=== PATIENT | female | born 1970 | race Two or more races ===

== ENCOUNTER 2023-09-25 15:30 | Inpatient (IN) | payer OTHER ==
[~2023-09-25] VITALS: Ht 165.1 cm; Wt 61.3 kg
[2023-09-25] MEDS ORDERED: ONDANSETRON HCL 4 MG/2 ML VIAL IV ONE (15:45)
[2023-09-25] MEDS ORDERED: SODIUM CHLORIDE 0.9% 1,000 ML IV ONE ×2 (15:45→16:45)
[2023-09-25] MEDS ORDERED: MORPHINE SULFATE 4 MG/ML SYR/VIAL IV ONE (16:00)
[2023-09-25 16:34] LABS: Basophils # (auto) 0.1 10 ^3/uL (0-0.2); Basophils % (auto) 0.5 % (0.0-2.0); Eosinophils # (auto) 0 10 ^3/uL (0-0.8); Hematocrit 46.3 % (36.0-46.0); Hemoglobin 15.9 g/dL (12.2-16.2); Lymphocytes # (auto) 1.5 10 ^3/uL (0.4-5.4); Lymphocytes % (auto) 10.6 % (10.0-50.0); Mean Corpuscular Hemoglobin 31.3 pg (28.0-32.0); Mean Corpuscular Hgb Conc. 34.3 g/dL (32.0-36.0); Mean Corpuscular Volume 91.4 fL (80.0-100.0); Monocytes # (auto) 0.6 10 ^3/uL (0-1.3); Monocytes % (auto) 4.3 % (0.0-12.0); Neutrophils % (auto) 84.6 % (37.0-80.0); Nucleated Red Blood Cells % 0.9 %; Red Blood Cells 5.07 10^6/uL (4.0-5.20); Red Cell Distribution Width 12.5 % (11.8-14.3); White Blood Cell 14.2 10^3/uL (4.4-10.8)
[2023-09-25] MEDS ORDERED: SODIUM CHLORIDE 0.9% 1,000 ML IVB ONE (16:45)
[2023-09-25] MEDS ORDERED: InsuLIN REG 1unit/0.01ml Soln (100units/ml) IV ONE (16:45)
[2023-09-25 16:47] LABS: Alanine Aminotransferase 21 U/L (7-40); Albumin 5.1 g/dL (3.2-4.8); Alkaline Phosphatase 116 U/L (46-116); Anion Gap 9 (5-15); Aspartate Aminotransferase 18 U/L (13-40); Bilirubin, Total 0.8 mg/dL (0.2-1.0); Blood Urea Nitrogen 26 mg/dL (9-23); Calcium 10.5 mg/dL (8.5-10.1); Carbon Dioxide 30 mmol/L (20-30); Chloride 95 mmol/L (98-107); Glucose 235 mg/dL (74-106); Potassium 4.1 mmol/L (3.5-5.1); Sodium 134 mmol/L (136-145); Total Protein 7.6 g/dL (5.7-8.2)
[2023-09-25 17:10] VITALS: PULSE 92; RESP 13; O2SAT 97
[2023-09-25] MEDS ORDERED: METOCLOPRAMIDE HCL 5MG/ml INJ 2ml VIAL IV ONE (18:45)
[2023-09-25] MEDS ORDERED: HYDROmorphone HCL 2 MG/ML VL/or syr IV ONE (18:45)
[2023-09-25 19:22] LABS: Urine Bacteria FEW /hpf (None Seen); Urine Blood Negative /uL (Negative); Urine Clarity Clear (Clear); Urine Color Yellow (Yellow); Urine Hyaline Cast FEW /lpf (0 - 2); Urine Protein, UAD Negative (Negative); Urine Specific Gravity 1.013 (1.001-1.035); Urine Urobilinogen Normal (Negative); Urine WBC 11 /hpf (0 - 5); Urine pH 5.5 (5.0-8.0)
[2023-09-25 19:25] VITALS: PULSE 80; RESP 10; O2SAT 100
[2023-09-25] MEDS ORDERED: DOCUSATE SOD 100 MG CAP PO PRN (21:45)
[2023-09-25] MEDS ORDERED: ACETAMINOPHEN 325 MG TAB PO PRN (21:45)
[2023-09-25] MEDS ORDERED: HYDROcodone-ACET 5/325MG TAB PO PRN (21:45)
[2023-09-25] MEDS ORDERED: DEXTROSE (50%) 50ML SYRG IV PRN (21:45)
[2023-09-25] MEDS: FAMOTIDINE (10MG/ML) 2ML VL IV SCH (22:35)
[2023-09-25] MEDS: ONDANSETRON HCL 4 MG/2 ML VIAL IV PRN (22:56)
[2023-09-25] MEDS: MORPHINE SULFATE INJ 2 MG/ml SYRG IV PRN (22:57)
[2023-09-25] MEDS ORDERED: cefTRIAXone 1GM/50ML D5W 50 ML IV ONE (23:00)
[2023-09-26] VITALS (9 sets, daily range): BP systolic 114–160; BP diastolic 66–91; PULSE 65–83; RESP 16–20; TEMP 97.5–98.4; O2SAT 93–100
[2023-09-26] MEDS: ACCU-CHEK COMFORT CURVE STRIP VI SCH ×4 (00:01→17:49)
[2023-09-26] MEDS: ONDANSETRON HCL 4 MG/2 ML VIAL IV PRN ×3 (02:56→17:40)
[2023-09-26] MEDS: MORPHINE SULFATE INJ 2 MG/ml SYRG IV PRN ×4 (03:00→18:38)
[2023-09-26] MEDS: InsuLIN REG 1unit/0.01ml Soln (100units/ml) SC SCH ×4 (06:04→17:49)
[2023-09-26 06:15] LABS: Basophils # (auto) 0 10 ^3/uL (0-0.2); Basophils % (auto) 0.3 % (0.0-2.0); Eosinophils # (auto) 0.1 10 ^3/uL (0-0.8); Eosinophils % (auto) 0.5 % (0.0-7.0); Hematocrit 35.4 % (36.0-46.0); Hemoglobin 12.1 g/dL (12.2-16.2); Lymphocytes # (auto) 2.3 10 ^3/uL (0.4-5.4); Lymphocytes % (auto) 23.9 % (10.0-50.0); Mean Corpuscular Hemoglobin 31.2 pg (28.0-32.0); Mean Corpuscular Hgb Conc. 34.2 g/dL (32.0-36.0); Mean Corpuscular Volume 91.3 fL (80.0-100.0); Monocytes # (auto) 0.6 10 ^3/uL (0-1.3); Monocytes % (auto) 6.2 % (0.0-12.0); Neutrophils # (auto) 6.6 10 ^3/uL (1.6-8.6); Neutrophils % (auto) 69.1 % (37.0-80.0); Nucleated Red Blood Cells % 0.1 %; Red Blood Cells 3.88 10^6/uL (4.0-5.20); Red Cell Distribution Width 12.5 % (11.8-14.3); White Blood Cell 9.6 10^3/uL (4.4-10.8)
[2023-09-26 06:46] LABS: Alanine Aminotransferase 13 U/L (7-40); Albumin 3.9 g/dL (3.2-4.8); Alkaline Phosphatase 80 U/L (46-116); Anion Gap 8 (5-15); Aspartate Aminotransferase 16 U/L (13-40); BUN/Creatinine Ratio 15.1 (10.0-20.0); Bilirubin, Total 0.7 mg/dL (0.2-1.0); Blood Urea Nitrogen 11 mg/dL (9-23); Calcium 9.1 mg/dL (8.5-10.1); Carbon Dioxide 27 mmol/L (20-30); Chloride 104 mmol/L (98-107); Glucose 129 mg/dL (74-106); Potassium 3.4 mmol/L (3.5-5.1); Sodium 139 mmol/L (136-145); Total Protein 5.9 g/dL (5.7-8.2)
[2023-09-26] MEDS: FAMOTIDINE (10MG/ML) 2ML VL IV SCH (09:40)
[2023-09-26] MEDS ORDERED: MORPHINE SULFATE INJ 2 MG/ml SYRG IV ONE (10:30)
[2023-09-26] MEDS ORDERED: FAMO-12 PO (11:04)
[2023-09-26] MEDS ORDERED: ZOFR4T PO (11:04)
[2023-09-26] MEDS: POTASSIUM CHL 20MEQ/100ML 100 ML IV SCH ×2 (13:38→20:06)
[2023-09-26] MEDS ORDERED: MORP15TA PO (15:40)
[2023-09-26] MEDS ORDERED: PANTOPRAZOLE 40 MG/10 ML VIAL INJ IV ONE (16:00)
[2023-09-26] MEDS: PANTOPRAZOLE 40 MG/10 ML VIAL INJ IV SCH (16:28)
[2023-09-26] MEDS ORDERED: PATIENTS OWN MEDICATION (Morphine Sulfate 1 TAB) PO PRN (19:00)
[2023-09-26] MEDS ORDERED: CHOL20007 OR (19:06)
[2023-09-26] MEDS ORDERED: GABA-339 PO ×2 (19:06)
[2023-09-26] MEDS ORDERED: [UNRECOGNIZED DRUG - OTHER] PO (19:06)
[2023-09-26] MEDS ORDERED: DICL1GEL73 TD (19:06)
[2023-09-26] MEDS ORDERED: PRAM0.373 PO (19:06)
[2023-09-26] MEDS ORDERED: SIMV40TA18 PO (19:06)
[2023-09-26] MEDS ORDERED: MORPHINE SULFATE PO PRN (19:45)
[2023-09-26] MEDS ORDERED: POTASSIUM CHL 20MEQ/100ML 100 ML IV ONE (19:59)
[2023-09-26] MEDS ORDERED: TRAZ-227 PO (20:22)
[2023-09-26] MEDS ORDERED: cefTRIAXone 1GM/50ML D5W 50 ML IV SCH (21:00)
[2023-09-26] MEDS: CYCLOBENZAPRINE HCL 10 MG TAB PO PRN (21:14)
[2023-09-26] MEDS ORDERED: traZODone HCL 50 MG TAB PO SCH (22:00)
[2023-09-26] MEDS ORDERED: GABAPENTIN 1600 MG PO SCH (22:00)
[2023-09-26] MEDS ORDERED: PRAMIPEXOLE DIHYDROCHLORIDE 0.125 MG PO SCH (22:00)
[2023-09-26] MEDS ORDERED: GABAPENTIN 400 MG CAP PO SCH (22:00)
[2023-09-26] MEDS: MORPHINE SULF 15mg ER tab PO PRN (22:53)
[2023-09-27] MEDS: ACCU-CHEK COMFORT CURVE STRIP VI SCH ×2 (00:15→05:28)
[2023-09-27] MEDS: InsuLIN REG 1unit/0.01ml Soln (100units/ml) SC SCH ×2 (00:15→05:28)
[2023-09-27] MEDS: PANTOPRAZOLE 40 MG/10 ML VIAL INJ IV SCH (03:18)
[2023-09-27] MEDS: MORPHINE SULFATE INJ 2 MG/ml SYRG IV PRN (03:19)
[2023-09-27 05:00] VITALS: BP 143/76; PULSE 62; RESP 18; TEMP 98.3; O2SAT 97
[2023-09-27] MEDS: CYCLOBENZAPRINE HCL 10 MG TAB PO PRN (05:31)
[2023-09-27] MEDS: MORPHINE SULF 15mg ER tab PO PRN (06:56)
[2023-09-27 07:08] LABS: Basophils # (auto) 0 10 ^3/uL (0-0.2); Basophils % (auto) 0.4 % (0.0-2.0); Eosinophils # (auto) 0.1 10 ^3/uL (0-0.8); Hematocrit 34.8 % (36.0-46.0); Hemoglobin 12.1 g/dL (12.2-16.2); Lymphocytes # (auto) 2.6 10 ^3/uL (0.4-5.4); Lymphocytes % (auto) 39.1 % (10.0-50.0); Mean Corpuscular Hgb Conc. 34.7 g/dL (32.0-36.0); Mean Corpuscular Volume 92.3 fL (80.0-100.0); Monocytes # (auto) 0.4 10 ^3/uL (0-1.3); Monocytes % (auto) 6.3 % (0.0-12.0); Neutrophils # (auto) 3.5 10 ^3/uL (1.6-8.6); Neutrophils % (auto) 52.2 % (37.0-80.0); Nucleated Red Blood Cells % 0.1 %; Red Blood Cells 3.78 10^6/uL (4.0-5.20); Red Cell Distribution Width 12.6 % (11.8-14.3); White Blood Cell 6.6 10^3/uL (4.4-10.8)
[2023-09-27 07:50] LABS: Chloride 108 mmol/L (98-107); Potassium 3.8 mmol/L (3.5-5.1); Sodium 140 mmol/L (136-145)
[2023-09-27 07:51] LABS: Anion Gap 7 (5-15); Calcium 9.1 mg/dL (8.7-10.4); Carbon Dioxide 25 mmol/L (20-30)
[2023-09-27 07:56] LABS: BUN/Creatinine Ratio 6.4 (10.0-20.0); Blood Urea Nitrogen 5 mg/dL (9-23); Glucose 93 mg/dL (74-106); Lipase 39 U/L (12-53)
[2023-09-27 08:00] VITALS: PULSE 88; RESP 18
[2023-09-27] MEDS ORDERED: PATIENTS OWN MEDICATION (Gabapentin 800 MG) PO SCH (08:00)
[2023-09-27] MEDS ORDERED: GABAPENTIN 400 MG CAP PO SCH (08:00)
[2023-09-27] MEDS ORDERED: ATORVASTATIN 20 MG TAB PO SCH (10:00)
== END 2023-09-27 08:55 | disposition left against medical advice (07) | DRG 48 ==
LOC: ER 15:30 → OVERFLOW 22:59 → WEST WING 23:54
PROVIDERS: ADMIT Nurse Practitioner Family; ATTEND Nurse Practitioner Family
DX: E11.43 Type 2 diabetes mellitus with diabetic autonomic (poly)neuropathy (principal); D72.829 Elevated white blood cell count, unspecified; E11.40 Type 2 diabetes mellitus with diabetic neuropathy, unspecified; E11.10 Type 2 diabetes mellitus with ketoacidosis without coma; K31.84 Gastroparesis; E86.0 Dehydration; I16.0 Hypertensive urgency; N39.0 Urinary tract infection, site not specified; Z53.29 Procedure and treatment not carried out because of patient's decision for other reasons; Z80.0 Family history of malignant neoplasm of digestive organs; Z83.3 Family history of diabetes mellitus
CPT/HCPCS: 36415; 74176; 76705; 80048; 80053; 81001; 82962; 83690; 84484; 85025; 96361; 96365; 96375; C9113; G0378; J0696; J1815; J2405; J3480; J3490

== ENCOUNTER 2025-03-19 07:26 | Inpatient (IN) | payer MEDICARE, MEDICAID ==
[~2025-03-19] VITALS: Ht 165.1 cm; Wt 59.4 kg
[~2025-03-19 07:26] MED LIST: CHOL20007 OR; DICL1GEL73 TD; FAMO-12 PO; GABA-339 PO; MORP15TA PO; PRAM0.373 PO; SIMV40TA18 PO; TRAZ-227 PO; ZOFR4T PO; [UNRECOGNIZED DRUG - OTHER] PO
[2025-03-19 08:00] VITALS: PULSE 53; RESP 18; O2SAT 99
--- NOTE | 2025-03-19 08:15 | ED.PDOC ---
GI ASSESSMENT HPI Comments 54 year old female presents to the ED with a chief complaint of abdominal pain onset 2 days. Per daughter, patient has a PMHx of DM type I, Gastritis. Patient has been experiencing poor appetite for the past 2 days as well as diffused abdominal pain, nausea, vomiting, diarrhea, generalized weakness. Patient has not seen PCP, recently moved, has not been assigned new PCP. Denies chest pain, dizziness, headache, fevers, chills. No other symptoms or modifying factors present at this time. Chief Complaint: Nausea/Vomiting Time Seen by MD: 08:03 Primary Care Provider: NONE Reviewed Notes: Medications, Allergies Allergies: Coded Allergies: No Known Drug Allergy (Verified Allergy, Unknown, 09/25/23) Home Meds Reported Medications Trazodone Hcl (Trazodone Hcl) 50 Mg Tab, 50 MG PO HS, MG 09/26/23 Diclofenac Sodium (Topical) (Diclofenac Sodium) 1 % Gel, 1 % TD, GEL 09/26/23 Dextrose (Diabetic Use) (Trueplus Glucose Gel) 15 Gm/32 Ml Gel, 15 GM PO, GEL 09/26/23 Gabapentin (Gabapentin) 600 Mg Tab, 1600 MG PO HS for 30 Days, MG 09/26/23 Gabapentin (Gabapentin) 600 Mg Tab, 800 MG PO DAILY@BREAKFAST for 30 Days, MG 09/26/23 Pramipexole Dihydrochloride (Pramipexole Dihydrochlori) 0.375 Mg Tab, 0.125 MG PO HS, TAB 09/26/23 Cholecalciferol (VITAMIN D3) 2,000 Unit Tab, 2000 UNIT OR, TAB 09/26/23 Simvastatin (Simvastatin) 40 Mg Tab, 40 MG PO DAILY for 30 Days 09/26/23 Morphine Sulfate (Morphine Sulfate) 15 Mg Tab, 3 TAB PO TIDPRN PRN for PAIN SCALE 7 THRU 10, #90 TAB 09/26/23 Ondansetron Odt 4MG Tab (ZOFRAN PO) 4 Mg Tb, 4 MG PO Q6HR, TAB ODT TAB-DISSOLVE IN MOUTH, THEN SWALLOW 09/26/23 Famotidine (Famotidine) 20 Mg Tab, 20 MG PO BID for 30 Days, MG 09/26/23 Information Source: Patient, Relative (Child) Mode of Arrival: Ambulatory Timing: Days Duration: Since onset Prehospital treatment: None Quality: Sharp Severity: Moderate Recent: None Recent Hx of: None Pain Location: Diffuse Modifying Factors: Nothing Associated sign and symptoms: Nausea, Vomiting, Diarrhea, Abdominal Pain Past Medical History PAST MEDICAL HISTORY: DM Past Medical History (Other): Gastritis 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: No Pertinent 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 TECHNICIAN History Family History Family History: Reviewed,noncontributory to illness Social History Smoker: Non-Smoker Alcohol: Denies ETOH Use Drugs: Denies Drug Use Lives In: Home Constitutional: reports: weakness; denies: chills, diaphoresis, fatigue, fever, malaise, sweats, others EENTM: denies: blurred vision, double vision, ear bleeding, ear discharge, ear drainage, ear pain, ear ringing, eye pain, eye redness, hearing loss, mouth pain, mouth swelling, nasal discharge, nose bleeding, nose congestion, nose pain, photophobia, tearing, throat pain, throat swelling, voice changes, others Respiratory: denies: cough, hemoptysis, orthopnea, SOB at rest, shortness of breath, SOB with excertion, stridor, wheezing, others Cardiovascular: denies: chest pain, dizzy spells, diaphoresis, Dyspnea on exertion, edema, irregular heart beat, left arm pain, lightheadedness, palpitations, PND, syncope, others Gastrointestinal: reports: abdominal pain, nausea, poor appetite, vomiting; denies: abdomen distended, blood streaked bowels, constipated, diarrhea, dysphagia, difficulty swallowing, hematemesis, melena, poor fluid intake, rectal bleeding, rectal pain, others Genitourinary: denies: abnormal vagina bleeding, burning, dyspareunia, dysuria, flank pain, frequency, hematuria, incontinence, pain, , vagina discharge, urgency, others Neurological: reports: weakness; denies: dizziness, fainting, headache, left sided numbness, left sided weakness, numbness, paresthesia, pre-existing deficit, right sided numbness, right sided weakness, seizure, speech problems, tingling, tremors, others Musculoskeletal: denies: back pain, gout, joint pain, joint swelling, muscle pain, muscle stiffness, neck pain, others Integumetry: denies: bruises, change in color, change in hair/nails, dryness, laceration, lesions, lumps, rash, wounds, others Allergic/Immunocompromised: denies: Difficulty Healing, Frequent Infections, Hives, Itching, others Hematologic/Lymphatic: denies: anemia, blood clots, easy bleeding, easy bruising, swollen glands, others Endocrine: denies: excessive hunger, excessive sweating, excessive thirst, excessive urination, flushing, intolerance to cold, intolerance to heat, unexplained weight gain, unexplained weight loss, others Psychiatric: denies: anxiety, bipolar disorder, depression, hopeless, panic disorder, schizophrenia, sleepless, suicidal, others All Other Systems: Reviewed and Negative Physical Exam General Appearance: No Apparent Distress, Normal HEENT: Normal ENT Inspection, Pharynx Normal, TMs Normal Neck: Full Range of Motion, Non-Tender, Normal, Normal Inspection Respiratory: Chest Non-Tender, Lungs Clear, No Accessory Muscle Use, No Respiratory Distress, Normal Breath Sounds Cardiovascular: No Edema, No JVD, No Murmur, No Gallop, Normal Peripheral Pulses, Regular Rate/Rhythm Breast Exam: Deferred Gastrointestinal: No Organomegaly, Non Tender, No Pulsatile Mass, Normal Bowel Sounds, Soft Genitalia: Deferred Pelvic: Deferred Rectal: Deferred Extremities: No calf tenderness, Normal capillary refill, Normal inspection, Normal range of motion, Non-tender, No pedal edema Musculoskeletal : Apperance: Normal Neurologic: Alert, brakeshoe repairer II-XII nml as Tested, No Motor Deficits, Normal Affect, Normal Mood, No Sensory Deficits Cerebellar Function: Normal Reflexes: Normal Skin: Dry, Normal Color, Warm Lymphatic: No Adenopathy Was a procedure done? Was a procedure done?: No GI differential Dx Differential Diagnosis: Cholecystitis, Constipation, Gastritis/PUD, Gastroenteritis, Pancreatitis, PID, UTI, Urolithiasis, Dehydration, Electrolyte Imbalance, Viral X-Ray, Labs, Meds, VS Vital Signs Date Time Temp Pulse Resp B/P (MAP) Pulse Ox O2 Delivery O2 Flow Rate FiO2 03/19/25 10:33 200/93 03/19/25 10:00 86 12 200/93 (128) 97 03/19/25 09:08 61 15 200/93 03/19/25 08:19 58 24 198/112 03/19/25 08:00 57 03/19/25 08:00 97.2 53 18 203/90 (127) 99 97.2 03/19/25 08:00 53 18 99 Room Air* 0 21 03/19/25 07:47 97.4 60 24 132/93 (106) 96 97.4 Lab Test 03/19/25 09:36 03/19/25 09:29 03/19/25 08:33 03/19/25 08:25 Range/Units Troponin I High Sensitivity 3 L < 3 L </=34 ng/L POC Glucose 230 H 70-106 mg/dl White Blood Count 10.0 4.4-10.8 10^3/uL Red Blood Count 4.79 4.0-5.20 10^6/uL Hemoglobin 14.9 12.2-16.2 g/dL Hematocrit 44.5 36.0-46.0 % Mean Corpuscular Volume 92.9 80.0-100.0 fL Mean Corpuscular Hemoglobin 31.1 28.0-32.0 pg Mean Corpuscular Hemoglobin Concent 33.5 32.0-36.0 g/dL Red Cell Distribution Width 14.4 H 11.8-14.3 % Platelet Count 176 140-450 10^3/uL Mean Platelet Volume 8.5 6.9-10.8 fL Neutrophils (%) (Auto) 83.4 H 37.0-80.0 % Lymphocytes (%) (Auto) 12.3 10.0-50.0 % Monocytes (%) (Auto) 3.4 0.0-12.0 % Eosinophils (%) (Auto) 0.5 0.0-7.0 % Basophils (%) (Auto) 0.4 0.0-2.0 % Neutrophils # (Auto) 8.3 1.6-8.6 10 ^3/uL Lymphocytes # (Auto) 1.2 0.4-5.4 10 ^3/uL Monocytes # (Auto) 0.3 0-1.3 10 ^3/uL Eosinophils # (Auto) 0 0-0.8 10 ^3/uL Basophils # (Auto) 0 0-0.2 10 ^3/uL Nucleated Red Blood Cells 0.0 % Sodium Level 142 136-145 mmol/L Potassium Level 3.5 3.5-5.1 mmol/L Chloride Level 105 98-107 mmol/L Carbon Dioxide Level 29 20-31 mmol/L Anion Gap 8 5-15 Blood Urea Nitrogen 15 9-23 mg/dL Creatinine 0.92 0.550-1.02 mg/dL Glomerular Filtration Rate Calc 73 >90 mL/min BUN/Creatinine Ratio 16.3 10.0-20.0 Serum Glucose 240 H 74-106 mg/dL Lactic Acid Level 1.7 0.4-2.0 mmol/L Calcium Level 10.0 8.7-10.4 mg/dL Total Bilirubin 0.7 0.2-1.0 mg/dL Aspartate Amino Transferase (AST) 20 13-40 U/L Alanine Aminotransferase (ALT) 19 7-40 U/L Alkaline Phosphatase 111 46-116 U/L Total Protein 7.1 5.7-8.2 g/dL Albumin 4.6 3.2-4.8 g/dL Lipase 54 H 12-53 U/L Beta-Hydroxybutyric Acid 0.432 H < 0.4 mmol/L Blood Gas Specimen Type Venous Blood Gas Sample Site Vbg - n/a Blood Gas Patient Temperature 37.0 Arterial Blood Date Drawn [id number] Dean Test N/a Venous Blood pH 7.475 H 7.320-7.430 Venous Blood pCO2 at Patient Temp 37.9 L 38.0-54.0 mmHg Venous Blood pO2 at Patient Temp < 36.5 23.0-48.0 mmHg Venous Blood HCO3 27.3 22.0-29.0 mmol/L Venous Blood Base Excess 3.7 H -2.0-3.0 mmol/L Blood Gas Modality Room air Blood Gas Spontaneous Rate 20 FiO2 % 21.0 Test 03/19/25 07:41 03/19/25 07:37 Range/Units Urine Color Light-yellow Yellow Urine Clarity Clear Clear Urine pH 8.0 5.0-9.0 Urine Specific [place] 1.009 1.001-1.035 Urine Protein Negative Negative Urine Ketones 1+ H Negative Urine Blood Negative Negative /uL Urine Nitrite Negative Negative Urine Bilirubin Negative Negative Urine Urobilinogen Normal Negative mg/dL Urine Leukocyte Esterase Negative Negative /uL Urine RBC 1 0 - 4 /hpf Urine Microscopic WBC < 1 0-5 /HPF Urine Squamous Epithelial Cells Few <5 /hpf Urine Bacteria Few H None Seen /hpf Urine Glucose 3+ H Normal mg/dL POC Glucose 241 H 70-106 mg/dl Current Medications Medications (Trade) Dose Ordered Sig/Shruthi Route Start Time Stop Time Status Last Admin Sodium Chloride 2,000 ml @ 1,000 mls/hr Q2H ONCE IV 03/19/25 08:15 03/19/25 10:14 DC 03/19/25 08:23 Ondansetron HCl (Zofran) 4 mg ONCE ONCE IV 03/19/25 08:15 03/19/25 08:16 DC 03/19/25 08:18 Morphine Sulfate 4 mg ONCE ONCE IV 03/19/25 08:15 03/19/25 08:16 DC 03/19/25 08:19 Pantoprazole Sodium (Protonix) 40 mg ONCE ONCE IV 03/19/25 08:15 03/19/25 08:16 DC 03/19/25 08:18 Haloperidol Lactate (Haldol) 10 mg ONCE ONCE IM 03/19/25 09:15 03/19/25 09:24 DC 03/19/25 09:41 Hydralazine HCl (Apresoline Injection) 20 mg ONCE ONCE IV 03/19/25 10:00 03/19/25 10:14 DC 03/19/25 10:33 [place] [id number] Ph: [phone] DIAGNOSTIC IMAGING Diagnostic Imaging Report : [id number] Signed PATIENT: RUSH REEDCT: [id number] UNIT: [id number] : 1970 LOC: ER ROOM / BED: / AGE / SEX: 54 / F ADM STATUS: REG ER SERVICE 4 ORDERING PHYSICIAN: CASS JACOBS MD PROCEDURE(s): CXRP - CHEST PORTABLE REASON: vomiting ORDER NUMBER(s): [id number], ACCESSION NUMBER(s): [id number] CHEST RADIOGRAPH Indication: vomiting Technique: Single frontal view of the chest was obtained COMPARISON: None FINDINGS: Lines and Tubes: None Lungs: Clear Pleura: No effusion. No pneumothorax. Cardiomediastinal contours: Unremarkable Bones: Unremarkable IMPRESSION: No acute disease. ATED BY: NOÉ IBANEZ MD DICTATED DATE/TIME: 03/19/25902 SIGNED BY: NOÉ IBANEZ MD SIGNED DATE/TIME: 03/19/25902 CC: Time of 1ST Reevaluation: 08:33 Reevaluation 1ST: Unchanged Patient Education/Counseling: Diagnosis, Treatment, Prognosis Family Education/Counseling: Diagnosis, Treatment, Prognosis Additional Information The following tests were ordered, and results were reviewed by me: TROP-x3, CBC, LIPASE, LA W/ REFLEX, UA, XY CHEST, BETA-HYDROXYBUTYRATE, VBG Additional Information was gathered from interviewing the following independent historians: daughter I reviewed and agreed with the following test results read by other providers: XY CHEST I discussed treatment and results with medical personnel and: patient, daughter Comprehensive systems review obtained and negative except for what is stated in the HPI. Departure 1 Departure Time of Disposition: 11:28 (Patient presented with hypertension and symptoms concerning for hypertensive emergency. Patient is receiving iv blood pressure medications requiring intensive monitoring. Data: 1. I ordered and reviewed the result of at least 3 labs including a CBC, BMP, and Urinalysis. 2. I independently interpreted the following tests: CT Brain: Which appears benign. EKG which is Normal Sinus RhythmRisk:This patient has a high risk of morbidity due to further diagnostic testing or treatment and may suffer from an acute cardiac disorder. Workup reveals hypertensive emergency and patient should be admitted for further workup. and possible expert consultation. ) Impression: Primary Impression: Hypertensive emergency Additional Impressions: Generalized weakness Intractable nausea and vomiting Disposition: ADMITTED INPATIENT Admit to: Med Surg Condition: Serious Critical Care Note Critical Care Time?: Yes Critical care comment: Hypertensive emergency Authorized and Performed by: Cass Jacobs MD Total critical care time: Approximately 39 minutes Due to a high probability of clinically significant, life threatening deterioration, the patient required my highest level of preparedness to intervene emergently and I personally spent this critical care time directly and personally managing the patient. This critical care time included obtaining a history; examining the patient; pulse oximetry; ordering and review of studies; arranging urgent treatment with development of a management plan; evaluation of patient's response to treatment; frequent reassessment; and, discussions with other providers. This critical care time was performed to assess and manage the high probability of imminent, life-threatening deterioration that could result in multi-organ failure. It was exclusive of separately billable procedures and treating other patients and teaching time. Please see my other sections and the rest of the note for further information on patient assessment and treatment. Stability Stability form required: No I personally scribed for CASS JACOBS MD ([facility]) on 03/19/25 at 08:15. Electronically submitted by Jeny العراقي ([email or web address]). I personally scribed for CASS JACOBS MD ([facility]) on 03/19/25 at 08:18. Electronically submitted by Jeny العراقي ([email or web address]). I personally scribed for CASS JACOBS MD ([facility]) on 03/19/25 at 09:14. Electronically submitted by Jeny العراقي ([email or web address]). CASS JACOBS MD March 19, 2025 08:15
[2025-03-19] MEDS: ONDANSETRON HCL 4 MG/2 ML VIAL IV ONE (08:18)
[2025-03-19] MEDS: PANTOPRAZOLE 40 MG/10 ML VIAL INJ IV ONE (08:18)
[2025-03-19] MEDS: MORPHINE SULFATE 4 MG/ML SYR/VIAL IV ONE (08:19)
[2025-03-19] MEDS: SODIUM CHLORIDE 0.9% 2,000 ML IV ONE (08:23)
[2025-03-19 08:47] LABS: Basophils # (auto) 0 10 ^3/uL (0-0.2); Basophils % (auto) 0.4 % (0.0-2.0); Eosinophils # (auto) 0 10 ^3/uL (0-0.8); Eosinophils % (auto) 0.5 % (0.0-7.0); Hematocrit 44.5 % (36.0-46.0); Hemoglobin 14.9 g/dL (12.2-16.2); Lymphocytes # (auto) 1.2 10 ^3/uL (0.4-5.4); Lymphocytes % (auto) 12.3 % (10.0-50.0); Mean Corpuscular Hemoglobin 31.1 pg (28.0-32.0); Mean Corpuscular Hgb Conc. 33.5 g/dL (32.0-36.0); Mean Corpuscular Volume 92.9 fL (80.0-100.0); Monocytes # (auto) 0.3 10 ^3/uL (0-1.3); Monocytes % (auto) 3.4 % (0.0-12.0); Neutrophils # (auto) 8.3 10 ^3/uL (1.6-8.6); Neutrophils % (auto) 83.4 % (37.0-80.0); Platelet Count (auto) 176 10^3/uL (140-450); Red Blood Cells 4.79 10^6/uL (4.0-5.20); Red Cell Distribution Width 14.4 % (11.8-14.3)
--- NOTE | 2025-03-19 09:05 | DVH ---
CHEST RADIOGRAPH Indication: vomiting Technique: Single frontal view of the chest was obtained COMPARISON: None FINDINGS: Lines and Tubes: None Lungs: Clear Pleura: No effusion. No pneumothorax. Cardiomediastinal contours: Unremarkable Bones: Unremarkable IMPRESSION: No acute disease.
[2025-03-19 09:06] LABS: Alanine Aminotransferase 19 U/L (7-40); Albumin 4.6 g/dL (3.2-4.8); Alkaline Phosphatase 111 U/L (46-116); Anion Gap 8 (5-15); Aspartate Aminotransferase 20 U/L (13-40); BUN/Creatinine Ratio 16.3 (10.0-20.0); Blood Urea Nitrogen 15 mg/dL (9-23); Carbon Dioxide 29 mmol/L (20-31); Chloride 105 mmol/L (98-107); Potassium 3.5 mmol/L (3.5-5.1); Sodium 142 mmol/L (136-145); Total Protein 7.1 g/dL (5.7-8.2)
[2025-03-19 09:07] LABS: Bilirubin, Total 0.7 mg/dL (0.2-1.0)
[2025-03-19 09:11] LABS: Glucose 240 mg/dL (74-106); Lipase 54 U/L (12-53)
[2025-03-19] MEDS: HALOPERIDOL LACTATE 5 MG/ML INJ VIAL ONE (09:41)
[2025-03-19] MEDS: HALOPERIDOL LACTATE 5 MG/ML INJ VIAL IM ONE (09:41)
[2025-03-19] MEDS: IOHEXOL 300 MG/ML 100ML BOTTLE IJ ONE (10:05)
[2025-03-19 10:09] LABS: Urine Bacteria FEW /hpf (None Seen); Urine Blood Negative /uL (Negative); Urine Clarity Clear (Clear); Urine Protein, UAD Negative (Negative); Urine Specific Gravity 1.009 (1.001-1.035); Urine Squamous Epithelial Cell FEW /hpf (<5); Urine Urobilinogen Normal (Negative); Urine WBC < 1 /HPF (0-5)
[2025-03-19 10:14] LABS: Urine Color Light-Yellow (Yellow)
[2025-03-19] MEDS: hydrALAZINE HCL 20 MG/ML VL IV ONE (10:33)
--- NOTE | 2025-03-19 10:36 | DVH ---
EXAM: CT HEAD WITHOUT CONTRAST HISTORY: hypertensive emergency COMPARISON: None TECHNIQUE: Axial images of the head were obtained and reformatted in coronal and sagittal planes. All CT scans at this medical facility are performed using dose modulation techniques as appropriate t o a performed exam including the following: Automated exposure control was utilized; adjustment of th e MA and/or KV according to patient size; and use of iterative reconstruction technique. CT Dose: CTDI volume is 59 mGy. Dose-length product is 1700 mGy*cm FINDINGS: There is no evidence of acute intracranial hemorrhage, mass, mass effect midline shift. There is no h ydrocephalus or extra-axial fluid collection. Lopez-white matter differentiation is maintained. The visualized paranasal sinuses and mastoid air cells are clear. The calvarium is intact. IMPRESSION: 1. No acute intracranial process. HS:Y
--- NOTE | 2025-03-19 10:44 | DVH ---
Exam: CT CT AB PEL WITH IV CON ONLY History: abdominal pain TECHNIQUE: Multiple contiguous axial CT images of the abdomen and pelvis were obtained with intraveno us contrast. The images were reformatted to generate coronal and sagittal reconstructions. 100 cc of Omnipaque 350 contrast was injected intravenously. All CT scans at this medical facility are performed using dose modulation techniques as appropriate t o a performed exam including the following:Automated exposure control was utilized; adjustment of the MA and/or KV according to patient size; and use of iterative reconstruction technique. Radiation Dose Information: CT Dose: CTDI volume is 9 mGy. Dose-length product is 1700 mGy*cm Comparison: 09/25/2023 FINDINGS: The liver, gallbladder, pancreas, kidneys, adrenal glands, and spleen appear within normal limits. There is no evidence of abdominal lymphadenopathy. There is no free fluid or free air. There is a small hiatal hernia. The small and large bowel loops demonstrate normal caliber and distri bution. A normal appearing appendix is seen in the right lower quadrant abdomen. The abdominal aorta and IVC appear within normal limits. The bladder appears within normal limits the degree of distention. Pelvic organ is unremarkable. Ther e is no evidence of a pelvic mass or lymphadenopathy. There is no free fluid collection. Lung bases are clear. There is no acute osseous abnormality. IMPRESSION: 1. There is no acute process in the abdomen and pelvis. 2. Small hiatal hernia. HS:Y
[2025-03-19] MEDS ORDERED: DEXTROSE (50%) 50ML SYRG IV PRN ×2 (14:00→22:30)
[2025-03-19] MEDS ORDERED: ACETAMINOPHEN 325 MG TAB PO PRN (14:00)
[2025-03-19] MEDS: SODIUM CHLOR 0.9% PF (SALINE LOCK) 10ML VIAL/SYR IV SCH (14:00)
[2025-03-19] MEDS ORDERED: ONDANSETRON HCL 4 MG/2 ML VIAL IV PRN (14:00)
[2025-03-19] MEDS ORDERED: DOCUSATE SOD 100 MG CAP PO PRN (14:00)
[2025-03-19] MEDS ORDERED: MORPHINE SULFATE INJ 2 MG/ml SYRG IV PRN (15:00)
[2025-03-19] MEDS ORDERED: NITROGLYCERIN 0.4 MG SL TAB SL PRN ×2 (15:00→15:15)
--- NOTE | 2025-03-19 15:02 | DVHHP2 ---
History of Present Illness Reason for Visit: Hypertensive emergency History of Present Illness The patient is a 54-year-old female past medical history of DM, hyperlipidemia, hypertension, and gastritis who presented to [facility] ED with complaint of abdominal pain for the past 2 days. Patient's symptoms progress ively with diffuse abdominal pain, associated nausea, vomiting, loss of appetite, getting worse today that prompted this visit. Patient was seen and evaluated in the ED, laboratory data shows WBC 10.0, platelets 176, sodium 142, potassium 3.5, BUN 15, creatinine 0.92, glucose 240, lipase 54, blood pressure 200/93 trending down 165/67, heart rate 78, temperature 98.6 F, O2 saturation 96% on room air. Please see medication orders section in the computer. On my assessment, patient denied chest pain, no headache, no dizziness, no diaphoresis, no shortness of breaths, no nausea or vomiting at this moment, no fever, no chills. Patient was admitted for further evaluation and medical management. Past Medical History DM, HLD, HTN, Gastritis Past Surgical History Family History Reviewed, noncontributory to the management of this case. Past Social History The patient lives at home, denies smoking, alcohol or illicit drugs abuse. Review of Systems Constitutional: No: Fever, Chills, Sweats, Weakness, Malaise, Other Eyes: No: Pain, Vision change, Conjunctivae inflammation, Eyelid inflammation, Other, Redness ENT: No: Ear pain, Ear discharge, Nose pain, Nose discharge, Nose congestion, Mouth pain, Mouth swelling, Throat pain, Throat swelling, Other Respiratory: No: Cough, Dry, Shortness of breath, SOB with excertion, Wheezing, Hemoptysis, Pleuritic Pain, Sputum, Wheezing, Other Cardiovascular: No: Chest Pain, Palpitations, Orthopnea, Paroxysmal Noc. Dyspnea, Edema, Lt Headedness, Other Gastrointestinal: Nausea, Vomiting, Abdominal Pain; No: Diarrhea, Constipation, Melena, Hematochezia, Other Genitourinary: No Dysuria, No Frequency, No Incontinence, No Hematuria, No Retention, No Other Musculoskeletal: No: other, neck pain, shoulder pain, arm pain, back pain, hand pain, leg pain, foot pain Skin: No: Rash, Lesions, Jaundice, Bruising, Other Neurological: No: Weakness, Numbness, Incoordination, Change in speech, Confus ion, Seizures, Other Allergies: Coded Allergies: No Known Drug Allergy (Verified Allergy, Unknown, 09/25/23) Medications Current Medications Medications Dose Ordered Sig/Shruthi Route Start Time Stop Time Status Last Admin Dose Admin Pantoprazole Sodium 40 mg DAILY IV 03/20/25 10:00 Amlodipine Besylate 5 mg DAILY PO 03/20/25 10:00 Hydralazine HCl 10 mg Q6HP PRN IV 03/19/25 14:00 Atorvastatin Calcium 20 mg HS PO 03/19/25 22:00 Diagnostic Test (Pha) 1 strip IQ4HR 03/19/25 16:00 Insulin Human Regular IQ4HR SC 03/19/25 16:00 Dextrose 50 ml UD PRN IV 03/19/25 14:00 Sodium Chloride 10 ml Q8HR IV 03/19/25 14:00 03/19/25 14:00 10 ML Acetaminophen/ Hydrocodone Bitart 1 tab Q4HP PRN PO 03/19/25 14:00 Ondansetron HCl 4 mg Q4HP PRN IV 03/19/25 14:00 Docusate Sodium 100 mg BIDPRN PRN PO 03/19/25 14:00 Acetaminophen 650 mg Q6HP PRN PO 03/19/25 14:00 Morphine Sulfate 2 mg Q4HPRN PRN IV 03/19/25 14:00 Trazodone HCl 50 mg HS PO 03/19/25 22:00 Exam Vital Signs Vital Signs Date Time Temp Pulse Resp B/P (MAP) Pulse Ox O2 Delivery O2 Flow Rate FiO2 03/19/25 14:00 72 15 157/65 (95) 97 03/19/25 12:00 98.6 98.6 03/19/25 08:00 Room Air* 0 21 General Appearance: Alert, Oriented X3, Cooperative, No acute distress HEENT: Atraumatic, PERRLA, EOMI, Mucous membr. moist/pink Respiratory: Clear to auscultation, Normal air movement Cardiovascular: Regular rate, Normal S1, Normal S2, No murmurs Abdominal: Normal bowel sounds, Soft, No hepatospenomegaly, No masses, Other (Reports tenderness) Extremities: No clubbing, No cyanosis, No edema, Normal pulses, No tenderness/swelling Skin: No rashes, No breakdown, No significant lesion Neuro: Normal gait, Normal speech, Strength at 5/5 X4 ext, Normal tone, Sensation intact, Cranial nerves 3-12 NL, Reflexes 2+ Psych/Mental Status: Mental status NL, Mood NL Labs/Xrays Labs Test 03/19/25 14:31 03/19/25 12:00 03/19/25 08:33 03/19/25 08:25 Range/Units POC Glucose 226 H 70-106 mg/dl Troponin I High Sensitivity 8 </=34 ng/L White Blood Count 10.0 4.4-10.8 10^3/uL Red Blood Count 4.79 4.0-5.20 10^6/uL Hemoglobin 14.9 12.2-16.2 g/dL Hematocrit 44.5 36.0-46.0 % Mean Corpuscular Volume 92.9 80.0-100.0 fL Mean Corpuscular Hemoglobin 31.1 28.0-32.0 pg Mean Corpuscular Hemoglobin Concent 33.5 32.0-36.0 g/dL Red Cell Distribution Width 14.4 H 11.8-14.3 % Platelet Count 176 140-450 10^3/uL Mean Platelet Volume 8.5 6.9-10.8 fL Neutrophils (%) (Auto) 83.4 H 37.0-80.0 % Lymphocytes (%) (Auto) 12.3 10.0-50.0 % Monocytes (%) (Auto) 3.4 0.0-12.0 % Eosinophils (%) (Auto) 0.5 0.0-7.0 % Basophils (%) (Auto) 0.4 0.0-2.0 % Neutrophils # (Auto) 8.3 1.6-8.6 10 ^3/uL Lymphocytes # (Auto) 1.2 0.4-5.4 10 ^3/uL Monocytes # (Auto) 0.3 0-1.3 10 ^3/uL Eosinophils # (Auto) 0 0-0.8 10 ^3/uL Basophils # (Auto) 0 0-0.2 10 ^3/uL Nucleated Red Blood Cells 0.0 % Sodium Level 142 136-145 mmol/L Potassium Level 3.5 3.5-5.1 mmol/L Chloride Level 105 98-107 mmol/L Carbon Dioxide Level 29 20-31 mmol/L Anion Gap 8 5-15 Blood Urea Nitrogen 15 9-23 mg/dL Creatinine 0.92 0.550-1.02 mg/dL Glomerular Filtration Rate Calc 73 >90 mL/min BUN/Creatinine Ratio 16.3 10.0-20.0 Serum Glucose 240 H 74-106 mg/dL Lactic Acid Level 1.7 0.4-2.0 mmol/L Calcium Level 10.0 8.7-10.4 mg/dL Total Bilirubin 0.7 0.2-1.0 mg/dL Aspartate Amino Transferase (AST) 20 13-40 U/L Alanine Aminotransferase (ALT) 19 7-40 U/L Alkaline Phosphatase 111 46-116 U/L Total Protein 7.1 5.7-8.2 g/dL Albumin 4.6 3.2-4.8 g/dL Lipase 54 H 12-53 U/L Beta-Hydroxybutyric Acid 0.432 H < 0.4 mmol/L Blood Gas Specimen Type Venous Blood Gas Sample Site Vbg - n/a Blood Gas Patient Temperature 37.0 Arterial Blood Date Drawn [id number] Dean Test N/a Venous Blood pH 7.475 H 7.320-7.430 Venous Blood pCO2 at Patient Temp 37.9 L 38.0-54.0 mmHg Venous Blood pO2 at Patient Temp < 36.5 23.0-48.0 mmHg Venous Blood HCO3 27.3 22.0-29.0 mmol/L Venous Blood Base Excess 3.7 H -2.0-3.0 mmol/L Blood Gas Modality Room air Blood Gas Spontaneous Rate 20 FiO2 % 21.0 Test 03/19/25 07:41 Range/Units Urine Color Light-yellow Yellow Urine Clarity Clear Clear Urine pH 8.0 5.0-9.0 Urine Specific [place] 1.009 1.001-1.035 Urine Protein Negative Negative Urine Ketones 1+ H Negative Urine Blood Negative Negative /uL Urine Nitrite Negative Negative Urine Bilirubin Negative Negative Urine Urobilinogen Normal Negative mg/dL Urine Leukocyte Esterase Negative Negative /uL Urine RBC 1 0 - 4 /hpf Urine Microscopic WBC < 1 0-5 /HPF Urine Squamous Epithelial Cells Few <5 /hpf Urine Bacteria Few H None Seen /hpf Urine Glucose 3+ H Normal mg/dL PATIENT: RUSH REEDCT: [id number] UNIT: [id number] : 1970 LOC: ER ROOM / BED: / AGE / SEX: 54 / F ADM STATUS: REG ER SERVICE [id number] ORDERING PHYSICIAN: CASS ROME MD PROCEDURE(s): ABPLIV - CT AB PEL WITH IV CON ONLY REASON: abdominal pain ORDER NUMBER(s): [id number], ACCESSION NUMBER(s): [id number] Exam: CT CT AB PEL WITH IV CON ONLY History: abdominal pain TECHNIQUE: Multiple contiguous axial CT images of the abdomen and pelvis were obtained with intravenous contrast. The images were reformatted to generate coronal and sagittal reconstructions. 100 cc of Omnipaque 350 contrast was injected intravenously. All CT scans at this medical facility are performed using dose modulation techni ques as appropriate to a performed exam including the following:Automated exposure control was utilized; adjustment of the MA and/or KV according to patient size; and use of iterative reconstruction technique. Radiation Dose Information: CT Dose: CTDI volume is 9 mGy. Dose-length product is 1700 mGy*cm Comparison: 09/25/2023 FINDINGS: The liver, gallbladder, pancreas, kidneys, adrenal glands, and spleen appear within normal limits. There is no evidence of abdominal lymphadenopathy. There is no free fluid or free air. There is a small hiatal hernia. The small and large bowel loops demonstrate normal caliber and distribution. A normal appearing appendix is seen in the right lower quadrant abdomen. The abdominal aorta and IVC appear within normal limits. The bladder appears within normal limits the degree of distention. Pelvic organ is unremarkable. There is no evidence of a pelvic mass or lymphadenopathy. There is no free fluid collection. Lung bases are clear. There is no acute osseous abnormality. IMPRESSION: 1. There is no acute process in the abdomen and pelvis. 2. Small hiatal hernia. ORDERING PHYSICIAN: CASS ROME MD PROCEDURE(s): CXRP - CHEST PORTABLE REASON: vomiting ORDER NUMBER(s): [id number], ACCESSION NUMBER(s): [id number] CHEST RADIOGRAPH Indication: vomiting Technique: Single frontal view of the chest was obtained COMPARISON: None FINDINGS: Lines and Tubes: None Lungs: Clear Pleura: No effusion. No pneumothorax. Cardiomediastinal contours: Unremarkable Bones: Unremarkable IMPRESSION: No acute disease. ORDERING PHYSICIAN: CASS ROME MD PROCEDURE(s): HWOCT - HEAD WITHOUT CONTRAST REASON: hypertensive emergency ORDER NUMBER(s): [id number], ACCESSION NUMBER(s): [id number] EXAM: CT HEAD WITHOUT CONTRAST HISTORY: hypertensive emergency COMPARISON: None TECHNIQUE: Axial images of the head were obtained and reformatted in coronal and sagittal planes. All CT scans at this medical facility are performed using dose modulation techniques as appropriate to a performed exam including the following: Automated exposure control was utilized; adjustment of the MA and/or KV according to patient size; and use of iterative reconstruction technique. CT Dose: CTDI volume is 59 mGy. Dose-length product is 1700 mGy*cm FINDINGS: There is no evidence of acute intracranial hemorrhage, mass, mass effect midline shift. There is no hydrocephalus or extra-axial fluid collection. Lopez-white matter differentiation is maintained. The visualized paranasal sinuses and mastoid air cells are clear. The calvarium is intact. IMPRESSION: 1. No acute intracranial process. Assessment/Plan Assessment/Plan Hypertensive emergency Generalized weakness Diabetes mellitus with hyperglycemia Intractable nausea and vomiting Plan 1. Admit to telemetry unit 2. Breathing treatment 3. Pain control management 4. Management of fluids and electrolytes 5. Consultation for hospitalist 6. Diagnostic tests CT of the abdomen/pelvis 7. DVT prophylaxis on SCDs 8. Repeat labs CBC, CMP in a.m. 9. Continue with current medical management 10. Treatment plan discussed with patient and RN. Patient verbalized understanding. Plan discussed with: Patient, Other (RN) My Orders Orders - YAYO CABRERA DNP Procedure Category Date Status Time Pantoprazole PHA 03/20/25 In Process (Protonix) 10:00 Amlodipine Tablet PHA 03/20/25 In Process (Norvasc Tablet) 10:00 Hydralazine Injection PHA 03/19/25 In Process (Apresoline Inject 14:00 Atorvastatin (Lipitor) PHA 03/19/25 In Process 22:00 Glucose Blood PHA 03/19/25 In Process (Accu-Chek Comfort 16:00 Insulin R (Human) PHA 03/19/25 In Process (Insulin R) 16:00 Dextrose 50% Syringe PHA 03/19/25 In Process 14:00 Allergies XOCHITL 03/19/25 In Process 13:59 Code Status CODE 03/19/25 Transmitted 13:59 Sodium Chloride Lock PHA 03/19/25 In Process (Saline Lock Ns) 14:00 Oxygen Per Hour RT 03/19/25 Transmitted 13:59 Hydrocodone-Acet PHA 03/19/25 In Process 5/325mg Tab ([place] 14:00 Ondansetron Hcl PHA 03/19/25 In Process (Zofran) 14:00 Docusate Sodium PHA 03/19/25 In Process Capsule (Colace 14:00 Complete Blood Count LAB 03/20/25 Verified 04:00 Comprehensive LAB 03/20/25 Verified Metabolic Panel 04:00 Condition: Serious XOCHITL 03/19/25 In Process 13:59 Acetaminophen Tablet PHA 03/19/25 In Process (Tylenol Tablet) 14:00 Clear Liq Diet DIET 03/19/25 Transmitted Dinner Bedrest With Bathroom XOCHITL 03/19/25 In Process Privileg 13:59 Morphine Sulfate PHA 03/19/25 In Process Injection 14:00 Trazodone Hcl PHA 03/19/25 In Process (Desyrel) 22:00 Admit ADMIT 03/19/25 Transmitted 14:59 Nitroglycerin PHA 03/19/25 Transmitted Sublingual (Ntrostat 15:00 Morphine Sulfate PHA 03/19/25 Transmitted Injection 15:00 Notify Md Of Changes XOCHITL 03/19/25 Transmitted From Base 14:59 Nuclear Radiation Engineer For XOCHITL 03/19/25 Transmitted 24 Hours 14:59 Emergency Dysrhythmia XOCHITL 03/19/25 Transmitted Protocol 14:59 Rhythm Strips Once XOCHITL 03/19/25 Transmitted Every Shift 14:59 Oxygen By Nasal RT 03/19/25 Transmitted Cannula 14:59 Problem List: (1) Hypertensive emergency (2) Generalized weakness (3) Diabetes mellitus with hyperglycemia (4) Intractable nausea and vomiting Date of Service: March 19, 2025 Billing Provider: YAYO CABRERA DNP Common Visit Codes: [id number] INP/OBS CARE (HIGH) AYYO CABRERA DNP March 19, 2025 15:02
[2025-03-19] MEDS: ACCU-CHEK COMFORT CURVE STRIP VI SCH ×2 (16:13→23:20)
[2025-03-19] MEDS: InsuLIN REG 1unit/0.01ml Soln (100units/ml) SC SCH ×2 (16:31→23:25)
[2025-03-19] MEDS: HYDROcodone-ACET 5/325MG TAB PO PRN (16:32)
[2025-03-19] MEDS: HYDROcodone-ACET 5/325MG TAB ONE (16:35)
[2025-03-19] MEDS: InsuLIN REG 1unit/0.01ml Soln (100units/ml) ONE (16:35)
[2025-03-19] MEDS: MORPHINE SULFATE INJ 2 MG/ml SYRG IV PRN ×3 (17:48→22:33)
[2025-03-19] MEDS: MORPHINE SULFATE INJ 2 MG/ml SYRG ONE (18:10)
[2025-03-19] MEDS: hydrALAZINE HCL 20 MG/ML VL IV PRN (18:22)
[2025-03-19] MEDS: hydrALAZINE HCL 20 MG/ML VL ONE (18:25)
[2025-03-19 20:01] VITALS: PULSE 89; RESP 22; O2SAT 95
[2025-03-19 22:00] VITALS: BP 165/75; PULSE 82; RESP 18; TEMP 98.5; O2SAT 96
[2025-03-19] MEDS ORDERED: traZODone HCL 50 MG TAB PO SCH (22:00)
[2025-03-19] MEDS ORDERED: ATORVASTATIN 20 MG TAB PO SCH (22:00)
[2025-03-19 22:09] VITALS: BP 165/75; PULSE 84; RESP 16; TEMP 98.5; O2SAT 96
[2025-03-19] MEDS ORDERED: HYDROcodone-ACET 5/325MG TAB PO PRN (22:30)
[2025-03-19] MEDS: traZODone HCL 50 MG TAB PO ONE (22:45)
[2025-03-19] MEDS: ATORVASTATIN 20 MG TAB PO ONE (23:17)
[2025-03-20] MEDS: hydrALAZINE HCL 20 MG/ML VL IV PRN (00:44)
[2025-03-20] MEDS: ONDANSETRON HCL 4 MG/2 ML VIAL IV PRN (00:44)
[2025-03-20 01:00] VITALS: BP_SYST 162; BP_SYST 171; BP_DIAS 77; BP_DIAS 85; PULSE 73; RESP 18; TEMP 99.4; O2SAT 94
[2025-03-20 05:00] VITALS: BP 157/69; PULSE 109; RESP 8; TEMP 98.6; O2SAT 99
[2025-03-20] MEDS: METOCLOPRAMIDE HCL 5MG/ml INJ 2ml VIAL IV ONE (06:37)
[2025-03-20] MEDS: SODIUM CHLOR 0.9% PF (SALINE LOCK) 10ML VIAL/SYR IV SCH (06:37)
[2025-03-20 08:00] VITALS: PULSE 77
[2025-03-20 08:48] VITALS: BP 163/81; PULSE 83; RESP 17; TEMP 98.2; O2SAT 99
[2025-03-20] MEDS: PANTOPRAZOLE 40 MG/10 ML VIAL INJ IV SCH (10:25)
[2025-03-20] MEDS: amLODIPine BESYLATE 5 MG TAB PO SCH (10:27)
[2025-03-20 13:00] VITALS: BP 121/72; PULSE 83; RESP 18; TEMP 97.5; O2SAT 96
--- NOTE | 2025-03-20 15:41 | DVHDS2 ---
Discharge Summary Date of Admission March 19, 2025 at 14:59 Date of Discharge: March 20, 2025 Admitting Diagnosis Hypertensive crisis Labs/Diagnostic Data: Laboratory Results Test 03/20/25 08:21 03/19/25 12:00 03/19/25 08:33 03/19/25 08:25 POC Glucose 189 mg/dl (70-106) Troponin I High Sensitivity 8 ng/L (</=34) White Blood Count 10.0 10^3/uL (4.4-10.8) Red Blood Count 4.79 10^6/uL (4.0-5.20) Hemoglobin 14.9 g/dL (12.2-16.2) Hematocrit 44.5 % (36.0-46.0) Mean Corpuscular Volume 92.9 fL (80.0-100.0) Mean Corpuscular Hemoglobin 31.1 pg (28.0-32.0) Mean Corpuscular Hemoglobin Concent 33.5 g/dL (32.0-36.0) Red Cell Distribution Width 14.4 % (11.8-14.3) Platelet Count 176 10^3/uL (140-450) Mean Platelet Volume 8.5 fL (6.9-10.8) Neutrophils (%) (Auto) 83.4 % (37.0-80.0) Lymphocytes (%) (Auto) 12.3 % (10.0-50.0) Monocytes (%) (Auto) 3.4 % (0.0-12.0) Eosinophils (%) (Auto) 0.5 % (0.0-7.0) Basophils (%) (Auto) 0.4 % (0.0-2.0) Neutrophils # (Auto) 8.3 10 ^3/uL (1.6-8.6) Lymphocytes # (Auto) 1.2 10 ^3/uL (0.4-5.4) Monocytes # (Auto) 0.3 10 ^3/uL (0-1.3) Eosinophils # (Auto) 0 10 ^3/uL (0-0.8) Basophils # (Auto) 0 10 ^3/uL (0-0.2) Nucleated Red Blood Cells 0.0 % Sodium Level 142 mmol/L (136-145) Potassium Level 3.5 mmol/L (3.5-5.1) Chloride Level 105 mmol/L (98-107) Carbon Dioxide Level 29 mmol/L (20-31) Anion Gap 8 (5-15) Blood Urea Nitrogen 15 mg/dL (9-23) Creatinine 0.92 mg/dL (0.550-1.02) Glomerular Filtration Rate Calc 73 mL/min (>90) BUN/Creatinine Ratio 16.3 (10.0-20.0) Serum Glucose 240 mg/dL (74-106) Lactic Acid Level 1.7 mmol/L (0.4-2.0) Calcium Level 10.0 mg/dL (8.7-10.4) Total Bilirubin 0.7 mg/dL (0.2-1.0) Aspartate Amino Transferase (AST) 20 U/L (13-40) Alanine Aminotransferase (ALT) 19 U/L (7-40) Alkaline Phosphatase 111 U/L (46-116) Total Protein 7.1 g/dL (5.7-8.2) Albumin 4.6 g/dL (3.2-4.8) Lipase 54 U/L (12-53) Beta-Hydroxybutyric Acid 0.432 mmol/L (< 0.4) Blood Gas Specimen Type Venous Blood Gas Sample Site Vbg - n/a Blood Gas Patient Temperature 37.0 Arterial Blood Date Drawn [id number] Dean Test N/a Venous Blood pH 7.475 (7.320-7.430) Venous Blood pCO2 at Patient Temp 37.9 mmHg (38.0-54.0) Venous Blood pO2 at Patient Temp < 36.5 mmHg (23.0-48.0) Venous Blood HCO3 27.3 mmol/L (22.0-29.0) Venous Blood Base Excess 3.7 mmol/L (-2.0-3.0) Blood Gas Modality Room air Blood Gas Spontaneous Rate 20 FiO2 % 21.0 Test 03/19/25 07:41 Urine Color Light-yellow (Yellow) Urine Clarity Clear (Clear) Urine pH 8.0 (5.0-9.0) Urine Specific [place] 1.009 (1.001-1.035) Urine Protein Negative (Negative) Urine Ketones 1+ (Negative) Urine Blood Negative /uL (Negative) Urine Nitrite Negative (Negative) Urine Bilirubin Negative (Negative) Urine Urobilinogen Normal mg/dL (Negative) Urine Leukocyte Esterase Negative /uL (Negative) Urine RBC 1 /hpf (0 - 4) Urine Microscopic WBC < 1 /HPF (0-5) Urine Squamous Epithelial Cells Few /hpf (<5) Urine Bacteria Few /hpf (None Seen) Urine Glucose 3+ mg/dL (Normal) Other Laboratory Tests 03/19/25 08:33 Brief Hx & Hospital Course: History of Present Illness The patient is a 54-year-old female past medical history of DM, hyperlipidemia, hypertension, and gastritis who presented to [facility] ED with complaint of abdominal pain for the past 2 days. Patient's symptoms progressively with diffuse abdominal pain, associated nausea, vomiting, loss of appetite, getting worse today that prompted this visit. Patient was seen and evaluated in the ED, laboratory data shows WBC 10.0, platelets 176, sodium 142, potassium 3.5, BUN 15, creatinine 0.92, glucose 240, lipase 54, blood pressure 200/93 trending down 165/67, heart rate 78, temperature 98.6 F, O2 saturation 96% on room air. Please see medication orders section in the computer. On my assessment, patient denied chest pain, no headache, no dizziness, no diaphoresis, no shortness of breaths, no nausea or vomiting at this moment, no fever, no chills. Patient was admitted for further evaluation and medical management. Course of hospitalization: Patient was treated with oral antihypertensives with the patient's blood pressure improving. Patient decided to leave against medical advice before being assessed by myself. Condition at Discharge: Undetermined Final Diagnosis/Problems List Hypertensive crisis Discharge Disposition: AMA 36 Discharge Statement: "Patient was advised to return to the ER or call 911 if any headaches, dizziness, shortness of breath, chest pain, abdominal pain, bleeding, fevers, or worsening of medical condition. Patient was counseled about treatment plan, medications, possible side effects, patientverbalized understanding. All questions were answered to the best of my ability. This discharge took greater then 30 minutes in planning, reviewing documentation, counseling the patient, and discussing with other team members." ASSESSMENT ASSESSMENT Assessment Date of Service: March 20, 2025 Billing Provider: RENATA MARTINEZ NP Common Visit Codes: 01295-IJP/OBS DISCH DAY <30MIN RENATA MARTINEZ NP March 20, 2025 15:41
[2025-03-20] MEDS ORDERED: traZODone HCL 50 MG TAB PO SCH (22:00)
[2025-03-20] MEDS ORDERED: ATORVASTATIN 20 MG TAB PO SCH (22:00)
== END 2025-03-20 12:51 | disposition left against medical advice (07) | DRG 305 ==
LOC: ER 07:26 → OVERFLOW 14:59 → ER 15:00 → TELE-EAST 22:00
PROVIDERS: ADMIT Nurse Practitioner Acute Care; ATTEND Nurse Practitioner Acute Care
DX: I16.1 Hypertensive emergency (principal); I10 Essential (primary) hypertension; E78.5 Hyperlipidemia, unspecified; Z53.29 Procedure and treatment not carried out because of patient's decision for other reasons; E11.65 Type 2 diabetes mellitus with hyperglycemia; Z79.891 Long term (current) use of opiate analgesic; Z79.899 Other long term (current) drug therapy; Z98.891 History of uterine scar from previous surgery
CPT/HCPCS: 36415; 36600; 70450; 71045; 74177; 80053; 81001; 82010; 82805; 82962; 83605; 83690; 84484; 85025; 87040; 96361; 96374; 96375; G0378; J1815; J2405; J2470

== ENCOUNTER 2025-06-10 09:27 | Inpatient (IN) | payer MEDICARE, MEDICAID ==
[~2025-06-10] VITALS: Ht 162.6 cm; Wt 60.1 kg
[2025-06-10] MEDS: LORazepam 2MG/ML-1ML VIAL ONE (09:51)
[2025-06-10] MEDS: LORazepam 2MG/ML-1ML VIAL IV ONE (09:52)
[2025-06-10 09:55] VITALS: PULSE 98; RESP 19; O2SAT 94
[2025-06-10] MEDS ORDERED: LORazepam 2MG/ML-1ML VIAL IV ONE (10:00)
[2025-06-10] MEDS: HALOPERIDOL LACTATE 5 MG/ML INJ VIAL ONE (10:07)
[2025-06-10] MEDS: LORazepam 2MG/ML-1ML VIAL IM ONE (10:09)
--- NOTE | 2025-06-10 10:12 | ED.PDOC ---
History of Present Illness HPI Comments 54 y/o F, brought in by daughter, with PMHx of DM presents to the ED for CC of nausea/vomiting. Patient's daughter reports, patient has been experiencing symptoms of nausea and vomiting with associated weakness onset, Wednesday (06/08/25). Upon arrival to the ED, patient had a witnessed tonic clonic seizure like activity lasting approximately 20-30seconds. Following episode, patient became agitated and violent. Patient was moved to ED bed 12 for further care at this time. Chief Complaint: Nausea/Vomiting Time Seen by MD: 09:50 Primary Care Provider: NONE Reviewed Notes: Nurses Notes, Medications, Allergies Allergies: Coded Allergies: No Known Drug Allergy (Verified Allergy, Unknown, 09/25/23) Home Meds Reported Medications Trazodone Hcl (Trazodone Hcl) 50 Mg Tab, 50 MG PO HS, MG 09/26/23 Diclofenac Sodium (Topical) (Diclofenac Sodium) 1 % Gel, 1 % TD, GEL 09/26/23 Dextrose (Diabetic Use) (Trueplus Glucose Gel) 15 Gm/32 Ml Gel, 15 GM PO, GEL 09/26/23 Gabapentin (Gabapentin) 600 Mg Tab, 1600 MG PO HS for 30 Days, MG 09/26/23 Gabapentin (Gabapentin) 600 Mg Tab, 800 MG PO DAILY@BREAKFAST for 30 Days, MG 09/26/23 Pramipexole Dihydrochloride (Pramipexole Dihydrochlori) 0.375 Mg Tab, 0.125 MG PO HS, TAB 09/26/23 Cholecalciferol (VITAMIN D3) 2,000 Unit Tab, 2000 UNIT OR, TAB 09/26/23 Simvastatin (Simvastatin) 40 Mg Tab, 40 MG PO DAILY for 30 Days 09/26/23 Morphine Sulfate (Morphine Sulfate) 15 Mg Tab, 3 TAB PO TIDPRN PRN for PAIN SCALE 7 THRU 10, #90 TAB 09/26/23 Ondansetron Odt 4MG Tab (ZOFRAN PO) 4 Mg Tb, 4 MG PO Q6HR, TAB ODT TAB-DISSOLVE IN MOUTH, THEN SWALLOW 09/26/23 Famotidine (Famotidine) 20 Mg Tab, 20 MG PO BID for 30 Days, MG 09/26/23 Information Source: Patient Mode of Arrival: Ambulatory Severity: Moderate Timing: Days Duration: Since onset Prehospital treatment: None Past Medical History PAST MEDICAL HISTORY: DM Surgical History: RF ENGINEER History: No Pertinent RF ENGINEER History Family History Family History: Reviewed,noncontributory to illness Social History Smoker: Non-Smoker Alcohol: Denies ETOH Use Drugs: Denies Drug Use Lives In: Home Constitutional: reports: weakness; denies: chills, diaphoresis, fatigue, fever, malaise, sweats, others EENTM: denies: blurred vision, double vision, ear bleeding, ear discharge, ear drainage, ear pain, ear ringing, eye pain, eye redness, hearing loss, mouth pain, mouth swelling, nasal discharge, nose bleeding, nose congestion, nose pain, photophobia, tearing, throat pain, throat swelling, voice changes, others Respiratory: denies: cough, hemoptysis, orthopnea, SOB at rest, shortness of breath, SOB with excertion, stridor, wheezing, others Cardiovascular: denies: chest pain, dizzy spells, diaphoresis, Dyspnea on exertion, edema, irregular heart beat, left arm pain, lightheadedness, palpitations, PND, syncope, others Gastrointestinal: reports: nausea, vomiting; denies: abdomen distended, abdominal pain, blood streaked bowels, constipated, diarrhea, dysphagia, difficulty swallowing, hematemesis, melena, poor appetite, poor fluid intake, rectal bleeding, rectal pain, others Genitourinary: denies: abnormal vagina bleeding, burning, dyspareunia, dysuria, flank pain, frequency, hematuria, incontinence, pain, , vagina discharge, urgency, others Neurological: denies: dizziness, fainting, headache, left sided numbness, left sided weakness, numbness, paresthesia, pre-existing deficit, right sided numbness, right sided weakness, seizure, speech problems, tingling, tremors, weakness, others Musculoskeletal: denies: back pain, gout, joint pain, joint swelling, muscle pain, muscle stiffness, neck pain, others Integumetry: denies: bruises, change in color, change in hair/nails, dryness, laceration, lesions, lumps, rash, wounds, others Allergic/Immunocompromised: denies: Difficulty Healing, Frequent Infections, Hives, Itching, others Hematologic/Lymphatic: denies: anemia, blood clots, easy bleeding, easy bruising, swollen glands, others Endocrine: denies: excessive hunger, excessive sweating, excessive thirst, excessive urination, flushing, intolerance to cold, intolerance to heat, unexplained weight gain, unexplained weight loss, others Psychiatric: denies: anxiety, bipolar disorder, depression, hopeless, panic disorder, schizophrenia, sleepless, suicidal, others All Other Systems: Reviewed and Negative Physical Exam General Appearance: Moderate Distress HEENT: Normal ENT Inspection, Pharynx Normal, TMs Normal Neck: Full Range of Motion, Non-Tender, Normal, Normal Inspection Respiratory: Chest Non-Tender, Lungs Clear, No Accessory Muscle Use, No Respiratory Distress, Normal Breath Sounds Cardiovascular: No Edema, No JVD, No Murmur, No Gallop, Normal Peripheral Pulses, Regular Rate/Rhythm Breast Exam: Deferred Gastrointestinal: No Organomegaly, Non Tender, No Pulsatile Mass, Normal Bowel Sounds, Soft Genitalia: Deferred Pelvic: Deferred Rectal: Deferred Extremities: No calf tenderness, Normal capillary refill, Normal inspection, Normal range of motion, Non-tender, No pedal edema Musculoskeletal : Apperance: Normal Neurologic: Disoriented Cerebellar Function: NOT DONE Reflexes: NOT DONE Skin: Dry, Normal Color, Warm Peripheral Pulses: 3+ Radial (R), 3+ Radial (L) Lymphatic: No Adenopathy Was a procedure done? Was a procedure done?: No Differential Dx Considerations may include: DEHYDRATION, ELECTROLYTE IMBALANCE, DKA, HYPERGLYCEMIA, X-Ray, Labs, Meds, VS Vital Signs Date Time Temp Pulse Resp B/P (MAP) Pulse Ox O2 Delivery O2 Flow Rate FiO2 06/10/25 10:01 97.9 111 18 128/83 (98) 99 97.9 06/10/25 09:55 98 19 94 Non-Rebreather 15 N/A Lab Test 06/10/25 10:30 Range/Units White Blood Count 7.9 4.4-10.8 10^3/uL Red Blood Count 4.78 4.0-5.20 10^6/uL Hemoglobin 15.6 12.2-16.2 g/dL Hematocrit 45.2 36.0-46.0 % Mean Corpuscular Volume 94.5 80.0-100.0 fL Mean Corpuscular Hemoglobin 32.6 H 28.0-32.0 pg Mean Corpuscular Hemoglobin Concent 34.5 32.0-36.0 g/dL Red Cell Distribution Width 13.3 11.8-14.3 % Platelet Count 205 140-450 10^3/uL Mean Platelet Volume 7.6 6.9-10.8 fL Neutrophils (%) (Auto) 75.2 37.0-80.0 % Lymphocytes (%) (Auto) 19.4 10.0-50.0 % Monocytes (%) (Auto) 5.1 0.0-12.0 % Eosinophils (%) (Auto) 0.1 0.0-7.0 % Basophils (%) (Auto) 0.2 0.0-2.0 % Neutrophils # (Auto) 5.9 1.6-8.6 10 ^3/uL Lymphocytes # (Auto) 1.5 0.4-5.4 10 ^3/uL Monocytes # (Auto) 0.4 0-1.3 10 ^3/uL Eosinophils # (Auto) 0 0-0.8 10 ^3/uL Basophils # (Auto) 0 0-0.2 10 ^3/uL Nucleated Red Blood Cells 0.1 % Prothrombin Time 10.8 9.3-11.8 sec Prothrombin Time INR 1.02 0.9-1.15 Activated Partial Thromboplast Time 23.9 L 24.5-34.5 SEC Sodium Level 138 136-145 mmol/L Potassium Level 2.9 L 3.5-5.1 mmol/L Chloride Level 100 98-107 mmol/L Carbon Dioxide Level 19 L 20-31 mmol/L Anion Gap 19 H 5-15 Blood Urea Nitrogen 12 9-23 mg/dL Creatinine 1.10 H 0.550-1.02 mg/dL Glomerular Filtration Rate Calc 59 >90 mL/min BUN/Creatinine Ratio 10.9 10.0-20.0 Serum Glucose 248 H 74-106 mg/dL Lactic Acid Level Pending Calcium Level 10.4 8.7-10.4 mg/dL Total Bilirubin 0.9 0.2-1.0 mg/dL Aspartate Amino Transferase (AST) 30 13-40 U/L Alanine Aminotransferase (ALT) 26 7-40 U/L Alkaline Phosphatase 94 46-116 U/L Total Protein 7.1 5.7-8.2 g/dL Albumin 4.7 3.2-4.8 g/dL Current Medications Medications (Trade) Dose Ordered Sig/Shruthi Route Start Time Stop Time Status Last Admin Lorazepam (Ativan Inj) 1 mg ONCE ONCE IV 06/10/25 09:45 06/10/25 09:46 DC 06/10/25 09:52 Vancomycin HCl 200 ml @ 200 mls/hr ONCE ONCE IV 06/10/25 10:00 06/10/25 10:59 DC 06/10/25 11:00 Sodium Chloride 1,000 ml @ 1,000 mls/hr Q1H ONCE IV 06/10/25 10:00 06/10/25 10:59 DC 06/10/25 10:20 Sodium Chloride 1,000 ml @ 1,000 mls/hr Q1H ONCE IV 06/10/25 10:00 06/10/25 10:59 DC 06/10/25 10:20 Sodium Chloride 1,000 ml @ 150 mls/hr Q6H40M ONCE IV 06/10/25 10:00 06/10/25 16:39 06/10/25 10:20 Cefepime HCl 50 ml @ 50 mls/hr ONCE ONCE IV 06/10/25 10:15 06/10/25 11:14 DC 06/10/25 10:40 Lorazepam (Ativan Inj) 2 mg ONCE ONCE IM 06/10/25 10:15 06/10/25 10:16 DC 06/10/25 10:09 Patient disoriented. Agitated. Had to give Ativan. Had to give Haldol. She is confused. History of diabetes. Establish intravenous access. Was given fluids. Possible sepsis. Continue to monitor. [place] [id number] Ph: [phone] DIAGNOSTIC IMAGING Diagnostic Imaging Report : [id number] Signed PATIENT: RUSH REEDCT: [id number] UNIT: [id number] : 1970 LOC: ER ROOM / BED: / AGE / SEX: 54 / F ADM STATUS: REG ER SERVICE 3 ORDERING PHYSICIAN: RITU FOSTER MD PROCEDURE(s): CXRP - CHEST PORTABLE REASON: sob ORDER NUMBER(s): [id number], ACCESSION NUMBER(s): [id number] EXAM: XY CHEST PORTABLE CLINICAL HISTORY: sob TECHNIQUE: Single AP view of the chest WID: COMPARISON: XY CHEST PORTABLE on DOS: 5/5/25 FINDINGS: Lines and tubes: None Chest: The heart size and pulmonary vasculature is within normal limits. No pleural effusion or pneumothorax, suggestion of a tiny mixed opacity in the left upper lung. The osseous structures are grossly intact. IMPRESSION: Tiny mixed opacity in the left upper lung which could reflect scarring, nodule, or pneumonia. ATED BY: DENEEN BECERRA MD DICTATED DATE/TIME: 06/10/25 105 SIGNED BY: DENEEN BECERRA MD SIGNED DATE/TIME: 06/10/251049 CC: [place] [id number] Ph: [phone] DIAGNOSTIC IMAGING Diagnostic Imaging Report : [id number] Signed PATIENT: RUSH REEDCT: [id number] UNIT: [id number] : 1970 LOC: ER ROOM / BED: / AGE / SEX: 54 / F ADM STATUS: REG ER SERVICE ORDERING PHYSICIAN: RITU FOSTER MD PROCEDURE(s): HWOCT - HEAD WITHOUT CONTRAST REASON: altered ORDER NUMBER(s): [id number], ACCESSION NUMBER(s): [id number] CLINICAL HISTORY: altered TECHNIQUE: Helical imaging carried out from skull base to vertex without intravenous contrast. This exam was performed according to our departmental dose optimization program. Up-to-date CT equipment and radiation dose reduction techniques are utilized as appropriate. CTDIVol: 53.66 mGy DLP: 1076.59 mGy-cm WID: COMPARISON: CT HEAD WITHOUT CONTRAST on DOS: 03/19/25 FINDINGS: The ventricles and subarachnoid spaces are normal in size and configuration. There is no midline shift or mass effect. The bills white matter interfaces are maintained. The basal cisterns are patent. There is no evidence of acute intracranial hemorrhage or extra-axial fluid collection. The mastoid air cells and visualized paranasal sinuses are well-aerated. Scattered dental caries in predominantly mandibular dentition. Most of the maxillary teeth have been removed. IMPRESSION: No acute intracranial abnormality. Dental caries in multiple mandibular dentition. ATED BY: DENEEN BECERRA MD DICTATED DATE/TIME: 06/10/251056 SIGNED BY: DENEEN BECERRA MD SIGNED DATE/TIME: 06/10/251056 CC: Time of 1ST Reevaluation: 10:20 Reevaluation 1ST: Unchanged Patient Education/Counseling: Diagnosis, Treatment Family Education/Counseling: Diagnosis, Treatment SEPSIS Sepsis Screen Physician Orders Head Without Contrast (06/10/25 09:54) Urinalysis (06/10/25 09:54) Chest Portable (06/10/25 09:54) Accucheck (06/10/25 09:54) Blood Culture (06/10/25 09:54) Lactic Acid W/ Reflex Order (06/10/25 10:00) Lactic Acid W/ Reflex Order (06/10/25 12:00) Cefepime 1gm/ 50ml (Maxipime 1gm/50ml) (06/10/25 14:00) Notify Md If Map <65 Or Bp<90 (06/10/25 09:54) If Map<65 Start Vasopressor (06/10/25 09:54) Sepsis Reassesment After Fluid (06/10/25 10:54) Sodium Chloride 0.9% (06/10/25 10:00) Vital Signs Date Time Temp Pulse Resp B/P (MAP) Pulse Ox O2 Delivery O2 Flow Rate FiO2 06/10/25 10:01 97.9 111 18 128/83 (98) 99 97.9 06/10/25 09:55 98 19 94 Non-Rebreather 15 N/A Laboratory Tests Test 06/10/25 10:30 Lactic Acid Level Pending White Blood Count 7.9 10^3/uL (4.4-10.8) Medications Medications Dose Ordered Sig/Shruthi Route Start Time Stop Time Status Last Admin Dose Admin Cefepime HCl 50 ml @ 50 mls/hr ONCE ONCE IV 06/10/25 10:15 06/10/25 11:14 DC 06/10/25 10:40 Lorazepam 1 mg ONCE ONCE IV 06/10/25 09:45 06/10/25 09:46 DC 06/10/25 09:52 Lorazepam 2 mg ONCE ONCE IM 06/10/25 10:15 06/10/25 10:16 DC 06/10/25 10:09 Sodium Chloride 1,000 ml @ 150 mls/hr Q6H40M ONCE IV 06/10/25 10:00 06/10/25 16:39 06/10/25 10:20 Sodium Chloride 1,000 ml @ 1,000 mls/hr Q1H ONCE IV 06/10/25 10:00 06/10/25 10:59 DC 06/10/25 10:20 Sodium Chloride 1,000 ml @ 1,000 mls/hr Q1H ONCE IV 06/10/25 10:00 06/10/25 10:59 DC 06/10/25 10:20 Vancomycin HCl 200 ml @ 200 mls/hr ONCE ONCE IV 06/10/25 10:00 06/10/25 10:59 DC 06/10/25 11:00 Departure 1 Departure Time of Disposition: 10:22 Impression: Primary Impression: Metabolic encephalopathy Disposition: ADMITTED INPATIENT Admit to: Med Surg Condition: Guarded Critical Care Note Critical Care Time?: Yes (90 min-critical care time only) Stability Stability form required: No Heart Score Heart Score: Heart Score Response (Comments) Value History N/A 0 EKG N/A 0 Age N/A 0 Risk Factors N/A 0 Troponin N/A 0 Total 0 I personally scribed for RITU FOSTER MD ([email or web address]) on 06/10/25 at 10:12. Electronically submitted by Neelam Owen ([employer] I personally scribed for RITU FOSTER MD ([email or web address]) on 06/10/25 at 10:14. Electronically submitted by Neelam Owen ([email or web address]). I personally scribed for RITU FOSTER MD ([email or web address]) on 06/10/25 at 11:16. Electronically submitted by Neelam Owen ([email or web address]). I personally scribed for RITU FOSTER MD ([email or web address]) on 06/10/25 at 11:17. Electronically submitted by Neelam Owen ([employer] RITU FOSTER MD Jun 10, 2025 10:12
[2025-06-10] MEDS: SODIUM CHLORIDE 0.9% 1,000 ML IV ONE ×3 (10:20)
[2025-06-10] MEDS: CEFEPIME 1GM/ 50ML 50 ML IV ONE (10:40)
[2025-06-10 10:42] LABS: Hematocrit 45.2 % (36.0-46.0); Hemoglobin 15.6 g/dL (12.2-16.2); Mean Corpuscular Hemoglobin 32.6 pg (28.0-32.0); Mean Corpuscular Volume 94.5 fL (80.0-100.0); Nucleated Red Blood Cells % 0.1 %
--- NOTE | 2025-06-10 10:52 | DVH ---
EXAM: XY CHEST PORTABLE CLINICAL HISTORY: sob TECHNIQUE: Single AP view of the chest WID: COMPARISON: XY CHEST PORTABLE on DOS: 03/19/25 FINDINGS: Lines and tubes: None Chest: The heart size and pulmonary vasculature is within normal limits. No pleural effusion or pneumothorax, suggestion of a tiny mixed opacity in the left upper lung. The osseous structures are grossly intact. IMPRESSION: Tiny mixed opacity in the left upper lung which could reflect scarring, nodule, or pneumonia.
[2025-06-10 10:58] LABS: INR 1.02 (0.9-1.15); Partial Thromboplastin Time 23.9 SEC (24.5-34.5); Prothrombin Time 10.8 sec (9.3-11.8)
--- NOTE | 2025-06-10 10:59 | DVH ---
CLINICAL HISTORY: altered TECHNIQUE: Helical imaging carried out from skull base to vertex without intravenous contrast. This e xam was performed according to our departmental dose optimization program. Up-to-date CT equipment an d radiation dose reduction techniques are utilized as appropriate. CTDIVol: 53.66 mGy DLP: 1076.59 mGy-cm WID: COMPARISON: CT HEAD WITHOUT CONTRAST on DOS: 03/19/25 FINDINGS: The ventricles and subarachnoid spaces are normal in size and configuration. There is no midline axel ft or mass effect. The bills white matter interfaces are maintained. The basal cisterns are patent. Th ere is no evidence of acute intracranial hemorrhage or extra-axial fluid collection. The mastoid air cells and visualized paranasal sinuses are well-aerated. Scattered dental caries in predominantly man dibular dentition. Most of the maxillary teeth have been removed. IMPRESSION: No acute intracranial abnormality. Dental caries in multiple mandibular dentition.
[2025-06-10] MEDS: VANCOMYCIN 1GM/200ML PM 200 ML IV ONE (11:00)
[2025-06-10 11:02] LABS: Alanine Aminotransferase 26 U/L (7-40); Albumin 4.7 g/dL (3.2-4.8); Alkaline Phosphatase 94 U/L (46-116); Anion Gap 19 (5-15); BUN/Creatinine Ratio 10.9 (10.0-20.0); Blood Urea Nitrogen 12 mg/dL (9-23); Chloride 100 mmol/L (98-107); Sodium 138 mmol/L (136-145); Total Protein 7.1 g/dL (5.7-8.2)
[2025-06-10 11:03] LABS: Bilirubin, Total 0.9 mg/dL (0.2-1.0)
[2025-06-10 11:09] LABS: Calcium 10.4 mg/dL (8.7-10.4); Carbon Dioxide 19 mmol/L (20-31); Glucose 248 mg/dL (74-106); Potassium 2.9 mmol/L (3.5-5.1)
[2025-06-10 11:22] LABS: Lactic Acid w/Reflex 8.6 mmol/L (0.4-2.0)
[2025-06-10] MEDS ORDERED: NITROGLYCERIN 0.4 MG SL TAB SL PRN (13:45)
[2025-06-10] MEDS ORDERED: DOCUSATE SOD 100 MG CAP PO PRN (13:45)
[2025-06-10] MEDS ORDERED: DEXTROSE (50%) 50ML SYRG IV PRN ×2 (13:45→18:30)
[2025-06-10] MEDS ORDERED: VANCOMYCIN PER PHARMACY 0 MG IV SCH (13:45)
--- NOTE | 2025-06-10 13:45 | DVHHP2 ---
History of Present Illness Reason for Visit: seizure History of Present Illness 53-year-old male with past medical history of anxiety, hypertension, CVA, kidney stones, and chronic constipation presents to the ED with left hand swelling and pain following a dog bite. Per the patient, the incident occurred Wednesday evening while he was trying to feed his dog a bone. Since then, he has had persistent swelling and localized pain to the second digit and knuckle on the dorsal surface of the left hand. He denies fever, chills, or drainage from the site. He does report constipation for the past two days but denies abdominal pain, nausea, or vomiting. The patient is right-hand dominant and presented to the ED in a wheelchair accompanied by his . He received a tetanus booster today in the ED. On physical exam, there is swelling and tenderness over the second MCP joint and proximal phalanx with no obvious fluctuance. Lab evaluation reveals WBC of 16.9, suggesting possible infection. Creatinine was 1.38, calcium 2.6, otherwise CBC and BMP are unremarkable. Imaging of the hand is pending. Given concern for cellulitis vs deep space infection, patient will be admitted for IV antibiotics and further evaluation. Past Medical History See HPI above Past Surgical History See HPI above Family History Reviewed, non-contributory to the management of this case. Past Social History Unable to assess due to current mental status Review of Systems Review of Systems Unable to assess due to current mental status Gastrointestinal: Nausea, Vomiting, Abdominal Pain Allergies: Coded Allergies: No Known Drug Allergy (Verified Allergy, Unknown, 09/25/23) Medications Current Medications Medications Dose Ordered Sig/Shruthi Route Start Time Stop Time Status Last Admin Dose Admin Cefepime HCl 50 ml @ 12.5 mls/hr Q8HR IV 06/10/25 14:00 UNV Exam Vital Signs Vital Signs Date Time Temp Pulse Resp B/P (MAP) Pulse Ox O2 Delivery O2 Flow Rate FiO2 06/10/25 12:45 70 20 126/70 (88) 100 06/10/25 11:00 97.8 97.8 06/10/25 09:55 Non-Rebreather 15 N/A General Appearance: Other (Sedated) HEENT: Atraumatic, PERRLA, EOMI, Mucous membr. moist/pink Respiratory: Clear to auscultation, Normal air movement Cardiovascular: Regular rate, Normal S1, Normal S2, No murmurs Abdominal: Normal bowel sounds, Soft, No tenderness, No hepatospenomegaly, No masses Extremities: No clubbing, No cyanosis, No edema, Normal pulses, No tender ness/swelling Skin: No rashes, No breakdown, No significant lesion Labs/Xrays CT scan of the brain unremarkable Chest x-ray shows left upper lobe questionable pneumonia I reviewed labs, imaging CT scan abdomen pelvis, EKG and all diagnostic studies on this patient from ED records and the medical chart Labs Test 06/10/25 12:46 06/10/25 10:30 Range/Units Lactic Acid Level 1.9 0.4-2.0 mmol/L White Blood Count 7.9 4.4-10.8 10^3/uL Red Blood Count 4.78 4.0-5.20 10^6/uL Hemoglobin 15.6 12.2-16.2 g/dL Hematocrit 45.2 36.0-46.0 % Mean Corpuscular Volume 94.5 80.0-100.0 fL Mean Corpuscular Hemoglobin 32.6 H 28.0-32.0 pg Mean Corpuscular Hemoglobin Concent 34.5 32.0-36.0 g/dL Red Cell Distribution Width 13.3 11.8-14.3 % Platelet Count 205 140-450 10^3/uL Mean Platelet Volume 7.6 6.9-10.8 fL Neutrophils (%) (Auto) 75.2 37.0-80.0 % Lymphocytes (%) (Auto) 19.4 10.0-50.0 % Monocytes (%) (Auto) 5.1 0.0-12.0 % Eosinophils (%) (Auto) 0.1 0.0-7.0 % Basophils (%) (Auto) 0.2 0.0-2.0 % Neutrophils # (Auto) 5.9 1.6-8.6 10 ^3/uL Lymphocytes # (Auto) 1.5 0.4-5.4 10 ^3/uL Monocytes # (Auto) 0.4 0-1.3 10 ^3/uL Eosinophils # (Auto) 0 0-0.8 10 ^3/uL Basophils # (Auto) 0 0-0.2 10 ^3/uL Nucleated Red Blood Cells 0.1 % Prothrombin Time 10.8 9.3-11.8 sec Prothrombin Time INR 1.02 0.9-1.15 Activated Partial Thromboplast Time 23.9 L 24.5-34.5 SEC Sodium Level 138 136-145 mmol/L Potassium Level 2.9 L 3.5-5.1 mmol/L Chloride Level 100 98-107 mmol/L Carbon Dioxide Level 19 L 20-31 mmol/L Anion Gap 19 H 5-15 Blood Urea Nitrogen 12 9-23 mg/dL Creatinine 1.10 H 0.550-1.02 mg/dL Glomerular Filtration Rate Calc 59 >90 mL/min BUN/Creatinine Ratio 10.9 10.0-20.0 Serum Glucose 248 H 74-106 mg/dL Calcium Level 10.4 8.7-10.4 mg/dL Total Bilirubin 0.9 0.2-1.0 mg/dL Aspartate Amino Transferase (AST) 30 13-40 U/L Alanine Aminotransferase (ALT) 26 7-40 U/L Alkaline Phosphatase 94 46-116 U/L Total Protein 7.1 5.7-8.2 g/dL Albumin 4.7 3.2-4.8 g/dL SEPSIS Sepsis Screen Date sepsis recognized/suspect: Jun 10, 2025 Time Sepsis recognized/suspect: 926 Recent Procedure: No On Antibiotic Therapy: No Respiratory Rate >20: No Heart Rate >90: Yes Temp<36 C (96.8 F) or >38.3 C: No SBP <90 or MAP <65 mmHG: No New Acute Mental Status Change: No Is the patient on CPAP, BIPAP,: No Physician Orders Head Without Contrast (06/10/25 09:54) Urinalysis (06/10/25 09:54) Chest Portable (06/10/25 09:54) Accucheck (06/10/25 09:54) Blood Culture (06/10/25 09:54) Cefepime 1gm/ 50ml (Maxipime 1gm/50ml) (06/10/25 14:00) Notify Md If Map <65 Or Bp<90 (06/10/25 09:54) If Map<65 Start Vasopressor (06/10/25 09:54) Sepsis Reassesment After Fluid (06/10/25 10:54) Sodium Chloride 0.9% (06/10/25 10:00) Cefepime 2gm Extended Infusion (06/10/25 14:00) Vancomycin Per Pharmacy (06/10/25 13:45) * Neurology Consult (06/10/25 13:34) Seizure Assessment (06/10/25 13:34) Seizure Precautions (06/10/25 ) Seizure Precautions In Place (06/10/25 13:34) Levetiracetam Ivpb Keppra (06/10/25 13:45) Levetiracetam Ivpb Keppra (06/10/25 22:00) Ns W Potassium 20meq (06/10/25 13:45) Potassium Chl Nasim Kcl (06/10/25 13:45) Lactic Acid W/ Reflex Order (06/10/25 13:34) Glucose Blood (Accu-Chek Comfort Curve T (06/10/25 18:00) Mild Sliding Scale Npo - Q6hr (06/10/25 18:00) Dextrose 50% Syringe (06/10/25 13:45) Magnesium (06/10/25 13:34) Phosphorus (06/10/25 13:34) Drug Screen (06/10/25 13:34) Urine Ethanol (06/10/25 13:34) Thyroid Stimulating Hormone (06/10/25 13:34) Urinalysis (06/10/25 13:34) Admit (06/10/25 13:34) Allergies (06/10/25 13:34) Ondansetron Hcl (Zofran) (06/10/25 13:45) Docusate Sodium Capsule (Colace Capsule) (06/10/25 13:45) Complete Blood Count (06/11/25 04:00) Comprehensive Metabolic Panel (06/11/25 04:00) Npo (Nothing By Mouth) Diet (06/10/25 Dinner) Condition: Stable (06/10/25 13:34) Sequential Compression Device (06/10/25 ) Nitroglycerin Sublingual (Ntrostat Subli (06/10/25 13:45) Stat Ekg For Chest Pain (06/10/25 13:34) Notify Of Changes From Base (06/10/25 13:34) Imcu Specialist For 24 Hours (06/10/25 13:34) Emergency Dysrhythmia Protocol (06/10/25 13:34) Rhythm Strips Once Every Shift (06/10/25 13:34) Oxygen By Nasal Cannula (06/10/25 13:34) Vital Signs Date Time Temp Pulse Resp B/P (MAP) Pulse Ox O2 Delivery O2 Flow Rate FiO2 06/10/25 12:45 70 20 126/70 (88) 100 06/10/25 12:30 69 20 106/63 (77) 100 06/10/25 12:15 88 21 110/62 (78) 100 06/10/25 12:00 77 20 98/61 (73) 87 06/10/25 11:45 86 20 94/57 (69) 93 06/10/25 11:30 75 19 87/52 (64) 100 06/10/25 11:15 79 20 82/48 (59) 100 06/10/25 11:00 97.8 83 20 82/51 (61) 99 97.8 06/10/25 10:45 94 22 98 06/10/25 10:30 92 98 06/10/25 10:15 103 92 06/10/25 10:01 97.9 111 18 128/83 (98) 99 97.9 06/10/25 10:00 139 96 06/10/25 09:55 98 19 94 Non-Rebreather 15 N/A Laboratory Tests Test 06/10/25 10:30 06/10/25 12:46 Lactic Acid Level 8.6 mmol/L (0.4-2.0) *H 1.9 mmol/L (0.4-2.0) White Blood Count 7.9 10^3/uL (4.4-10.8) Medications Medications Dose Ordered Sig/Shruthi Route Start Time Stop Time Status Last Admin Dose Admin Cefepime HCl 50 ml @ 50 mls/hr ONCE ONCE IV 06/10/25 10:15 06/10/25 11:14 DC 06/10/25 10:40 50 MLS/HR Lorazepam 1 mg ONCE ONCE IV 06/10/25 09:45 06/10/25 09:46 DC 06/10/25 09:52 1 MG Lorazepam 2 mg ONCE ONCE IM 06/10/25 10:15 06/10/25 10:16 DC 06/10/25 10:09 2 MG Sodium Chloride 1,000 ml @ 150 mls/hr Q6H40M ONCE IV 06/10/25 10:00 06/10/25 16:39 06/10/25 10:20 150 MLS/HR Sodium Chloride 1,000 ml @ 1,000 mls/hr Q1H ONCE IV 06/10/25 10:00 06/10/25 10:59 DC 06/10/25 10:20 1,000 MLS/HR Sodium Chloride 1,000 ml @ 1,000 mls/hr Q1H ONCE IV 06/10/25 10:00 06/10/25 10:59 DC 06/10/25 10:20 1,000 MLS/HR Vancomycin HCl 200 ml @ 200 mls/hr ONCE ONCE IV 06/10/25 10:00 06/10/25 10:59 DC 06/10/25 11:00 200 MLS/HR Assessment/Plan Assessment/Plan 54 yr old female Left hand cellulitis following dog bite admitted for IV antibiotics and orthopedic evaluation. ASSESSMENT & PLAN acute Left hand cellulitis/Dog bite with localized swelling and pain over second digit/MCP joint No drainage or fluctuance noted Tetanus booster administered in ED Start Unasyn IV Elevate hand, apply warm compress X-ray of left hand ordered to evaluate for fracture or foreign body Ortho consult to evaluate for deep space infection vs tenosynovitis ordered morphine prn pain acute Leukocytosis WBC 16.9 Likely reactive to localized infection Monitor daily CBC acute Constipation Reports no bowel movement for 2 days Provide MiraLAX Encourage ambulation and hydration chronic problems Hypertension History of CVA Anxiety Chronic constipation Kidney stones FEN / PPx Fluids: IV NS at maintenance Electrolytes: Monitor BMP daily Nutrition: Regular diet, encourage fiber DVT Prophylaxis: SCDs until ambulatory GI Prophylaxis: Protonix Disposition Admit to medicine for IV antibiotics, orthopedic evaluation, and monitoring of localized hand infection from dog bite. Plan discussed with: Patient, Spouse My Orders Orders - MIRZA KITCHEN DNP Procedure Category Date Status Time Cefepime 2gm Extended PHA 06/10/25 Verified Infusion 14:00 Vancomycin Per PHA 06/10/25 Verified Pharmacy 13:45 * Neurology Consult CONS 06/10/25 Verified 13:34 Seizure Assessment [id number] 06/10/25 Verified 13:34 Seizure Precautions ED NURSING 06/10/25 Verified Seizure Precautions [id number] 06/10/[address] 13:34 Levetiracetam Ivpb PHA 06/10/25 Verified Keppra 13:45 Levetiracetam Ivpb PHA 06/10/25 Verified Keppra 22:00 Ns W Potassium 20meq [facility] 06/10/25 Verified 13:45 Potassium Chl Nasim [facility] 06/10/25 Verified KCL 13:45 Lactic Acid W/ Reflex LAB 06/10/25 Verified Order 13:34 Glucose Blood [facility] 06/10/25 Verified (Accu-Chek Comfort 18:00 Mild Sliding Scale [facility] 06/10/25 Verified Npo - Q6hr 18:00 Dextrose 50% Syringe [facility] 06/10/25 Verified 13:45 Magnesium LAB 06/10/25 Verified 13:34 Phosphorus LAB 06/10/25 Verified 13:34 Drug Screen LAB 06/10/25 Verified 13:34 Urine Ethanol LAB 06/10/25 Verified 13:34 Thyroid Stimulating LAB 06/10/25 Verified Hormone 13:34 Urinalysis LAB 06/10/25 Verified 13:34 Admit ADMIT 06/10/25 Verified 13:34 Allergies [facility] 06/10/25 Verified 13:34 Ondansetron Hcl [facility] 06/10/25 Verified (Zofran) 13:45 Docusate Sodium [facility] 06/10/25 Verified Capsule (Colace 13:45 Complete Blood Count LAB 06/11/25 Verified 04:00 Comprehensive LAB 06/11/25 Verified Metabolic Panel 04:00 Npo (Nothing By DIET 06/10/25 Verified Mouth) Diet Dinner Condition: Stable [facility] 06/10/25 Verified 13:34 Sequential [facility] 06/10/25 Verified Compression Device Nitroglycerin [facility] 06/10/25 Verified Sublingual (Ntrostat 13:45 Stat Ekg For Chest [facility] 06/10/25 Verified Pain 13:34 Notify Md Of Changes [facility] 06/10/25 Verified From Base 13:34 Imcu Specialist For [facility] 06/10/25 Verified 24 Hours 13:34 Emergency Dysrhythmia [facility] 06/10/25 Verified Protocol 13:34 Rhythm Strips Once [facility] 06/10/25 Verified Every Shift 13:34 Oxygen By Nasal 06/10/25 Verified Cannula 13:34 Date of Service: Jun 10, 2025 Billing Provider: MIRZA KITCHEN DNP Common Visit Codes: [id number] INP/OBS CARE (HIGH) MIRZA KITCHEN DNP Jun 10, 2025 13:45
[2025-06-10] MEDS ORDERED: CEFEPIME 1GM/ 50ML 50 ML IV SCH (14:00)
[2025-06-10 14:15] LABS: Magnesium 1.7 mg/dL (1.6-2.6)
[2025-06-10] MEDS: POLYETHYLENE GLYCOL 17 GM PWDR PO ONE (14:30)
--- NOTE | 2025-06-10 14:34 | DVHHP2 ---
History of Present Illness Reason for Visit: seizure History of Present Illness 54-year-old female with a past medical history of diabetes, remote seizures (last known seizure approximately two years ago), and presents to the ED after a witnessed seizure. According to nursing staff and the ED record, the patient has had decreased oral intake and complaints of epigastric pain for approximately one week. She was recently discharged from another facility but reportedly continued to decline. While at home, she hit her hand while going to the bathroom and subsequently had a seizure. Per her daughter, the patient has not had seizures for over two years and it is unclear whether she is currently taking antiseizure medication. Upon arrival to the ED, she was postictal and became combative, requiring Ativan for sedation. On physical exam, the patient is sedated but arousable, opens her eyes briefly to voice, then returns to sleep. The daughter reports significant psychosocial stress: they attended a today for her husbands mother who passed, and the patient had been grieving her husbands recent . She had been experiencing generalized weakness and lethargy since Wednesday. In the ED, she had a witnessed tonic-clonic seizure lasting approximately 2030 seconds. Labs show low potassium (2.9), glucose 348, elevated lactate 8.6, Cr 1.1. Chest x-ray showed left lower lobe opacity concerning for pneumonia. CT brain showed no acute findings. Will admit for management of seizure and suspected pneumonia. Past Medical History Unable to give full medical history due to current mental status Past Surgical History Unable to give full surgical history due to current mental status Family History Unable to assess family history due to mental status Past Social History Unable to assess social history due to mental status Review of Systems Review of Systems Unable to assess ROS due to mental status but was told have nausea vomiting abdominal pain by daughter Allergies: Coded Allergies: No Known Drug Allergy (Verified Allergy, Unknown, 09/25/23) Medications Current Medications Medications Dose Ordered Sig/Shruthi Route Start Time Stop Time Status Last Admin Dose Admin Cefepime HCl 50 ml @ 12.5 mls/hr Q8HR IV 06/10/25 14:00 UNV Cefepime HCl 50 ml @ 12.5 mls/hr Q8HR IV 06/10/25 14:00 UNV Vancomycin HCl 0 ml @ 0 mls/hr UD IV 06/10/25 13:45 UNV Levetiracetam 100 ml @ 400 mls/hr BID IV 06/10/25 22:00 UNV Potassium Chloride/Sodium Chloride 1,000 ml @ 100 mls/hr Q10H IV 06/10/25 13:45 UNV Potassium Chloride 100 ml @ 50 mls/hr Q2H IV 06/10/25 13:45 06/10/25 17:44 UNV Diagnostic Test (Pha) 1 strip Q6HR 06/10/25 18:00 UNV Insulin Human Regular Q6HR SC 06/10/25 18:00 UNV Dextrose 50 ml UD PRN IV 06/10/25 13:45 UNV Ondansetron HCl 4 mg Q4HP PRN IV 06/10/25 13:45 UNV Docusate Sodium 100 mg BIDPRN PRN PO 06/10/25 13:45 UNV Nitroglycerin 0.4 mg Q5MINP PRN SL 06/10/25 13:45 UNV Exam Vital Signs Vital Signs Date Time Temp Pulse Resp B/P (MAP) Pulse Ox O2 Delivery O2 Flow Rate FiO2 06/10/25 12:45 70 20 126/70 (88) 100 06/10/25 11:00 97.8 97.8 06/10/25 09:55 Non-Rebreather 15 N/A General Appearance: Other (Sedated) HEENT: Atraumatic, PERRLA, EOMI, Mucous membr. moist/pink Respiratory: Clear to auscultation, Normal air movement Cardiovascular: Regular rate, Normal S1, Normal S2, No murmurs Abdominal: Normal bowel sounds, Soft, No tenderness, No hepatospenomegaly, No masses Extremities: No clubbing, No cyanosis, No edema, Normal pulses, No tenderness/swelling Skin: No rashes, No breakdown, No significant lesion Neuro: Other (Neuro nonfocal) Labs/Xrays CT scan of the brain unremarkable Chest x-ray shows left upper lobe questionable pneumonia I reviewed labs, imaging CT scan abdomen pelvis, EKG and all diagnostic studies on this patient from ED records and the medical chart Labs Test 06/10/25 12:46 06/10/25 10:30 Range/Units Lactic Acid Level 1.9 0.4-2.0 mmol/L White Blood Count 7.9 4.4-10.8 10^3/uL Red Blood Count 4.78 4.0-5.20 10^6/uL Hemoglobin 15.6 12.2-16.2 g/dL Hematocrit 45.2 36.0-46.0 % Mean Corpuscular Volume 94.5 80.0-100.0 fL Mean Corpuscular Hemoglobin 32.6 H 28.0-32.0 pg Mean Corpuscular Hemoglobin Concent 34.5 32.0-36.0 g/dL Red Cell Distribution Width 13.3 11.8-14.3 % Platelet Count 205 140-450 10^3/uL Mean Platelet Volume 7.6 6.9-10.8 fL Neutrophils (%) (Auto) 75.2 37.0-80.0 % Lymphocytes (%) (Auto) 19.4 10.0-50.0 % Monocytes (%) (Auto) 5.1 0.0-12.0 % Eosinophils (%) (Auto) 0.1 0.0-7.0 % Basophils (%) (Auto) 0.2 0.0-2.0 % Neutrophils # (Auto) 5.9 1.6-8.6 10 ^3/uL Lymphocytes # (Auto) 1.5 0.4-5.4 10 ^3/uL Monocytes # (Auto) 0.4 0-1.3 10 ^3/uL Eosinophils # (Auto) 0 0-0.8 10 ^3/uL Basophils # (Auto) 0 0-0.2 10 ^3/uL Nucleated Red Blood Cells 0.1 % Prothrombin Time 10.8 9.3-11.8 sec Prothrombin Time INR 1.02 0.9-1.15 Activated Partial Thromboplast Time 23.9 L 24.5-34.5 SEC Sodium Level 138 136-145 mmol/L Potassium Level 2.9 L 3.5-5.1 mmol/L Chloride Level 100 98-107 mmol/L Carbon Dioxide Level 19 L 20-31 mmol/L Anion Gap 19 H 5-15 Blood Urea Nitrogen 12 9-23 mg/dL Creatinine 1.10 H 0.550-1.02 mg/dL Glomerular Filtration Rate Calc 59 >90 mL/min BUN/Creatinine Ratio 10.9 10.0-20.0 Serum Glucose 248 H 74-106 mg/dL Calcium Level 10.4 8.7-10.4 mg/dL Phosphorus Level 4.9 2.4-5.1 mg/dL Magnesium Level 1.7 1.6-2.6 mg/dL Total Bilirubin 0.9 0.2-1.0 mg/dL Aspartate Amino Transferase (AST) 30 13-40 U/L Alanine Aminotransferase (ALT) 26 7-40 U/L Alkaline Phosphatase 94 46-116 U/L Total Protein 7.1 5.7-8.2 g/dL Albumin 4.7 3.2-4.8 g/dL Thyroid Stimulating Hormone (TSH) 2.32 0.55-4.78 uIU/mL Plasma/Serum Blood Alcohol < 3.0 <10 mg/dL SEPSIS Sepsis Screen Date sepsis recognized/suspect: Jun 10, 2025 Time Sepsis recognized/suspect: 926 Recent Procedure: No On Antibiotic Therapy: No Respiratory Rate >20: No Heart Rate >90: Yes Temp<36 C (96.8 F) or >38.3 C: No SBP <90 or MAP <65 mmHG: No New Acute Mental Status Change: No Is the patient on CPAP, BIPAP,: No Physician Orders Head Without Contrast (06/10/25 09:54) Urinalysis (06/10/25 09:54) Chest Portable (06/10/25 09:54) Accucheck (06/10/25 09:54) Blood Culture (06/10/25 09:54) Cefepime 1gm/ 50ml (Maxipime 1gm/50ml) (06/10/25 14:00) Notify Md If Map <65 Or Bp<90 (06/10/25 09:54) If Map<65 Start Vasopressor (06/10/25 09:54) Sepsis Reassesment After Fluid (06/10/25 10:54) Sodium Chloride 0.9% (06/10/25 10:00) Cefepime 2gm/50ml Ns (Maxipime 2gm/50ml) (06/10/25 14:00) Vancomycin Per Pharmacy (06/10/25 13:45) * Neurology Consult (06/10/25 13:34) Seizure Assessment (06/10/25 13:34) Seizure Precautions (06/10/25 ) Seizure Precautions In Place (06/10/25 13:34) Levetiracetam 1000 Mg/100ml (Levetiracet (06/10/25 13:45) Levetiracetam 1000 Mg/100ml (Levetiracet (06/10/25 22:00) Sod Chl 0.9%/ Kcl 20meq (06/10/25 13:45) Potassium Chl 20meq/100ml (06/10/25 13:45) Glucose Blood (Accu-Chek Comfort Curve T (06/10/25 18:00) Insulin R (Human) (Insulin R) (06/10/25 18:00) Dextrose 50% Syringe (06/10/25 13:45) Drug Screen (06/10/25 13:34) Thyroid Stimulating Hormone (06/10/25 13:34) Urinalysis (06/10/25:34) Admit (06/10/25:34) Allergies (06/10/25 13:34) Ondansetron Hcl (Zofran) (06/10/25 13:45) Docusate Sodium Capsule (Colace Capsule) (06/10/25 13:45) Complete Blood Count (06/11/25 04:00) Comprehensive Metabolic Panel (06/11/25 04:00) Npo (Nothing By Mouth) Diet (06/10/25 Dinner) Condition: Stable (06/10/25 13:34) Sequential Compression Device (06/10/25 ) Nitroglycerin Sublingual (Ntrostat Subli (06/10/25 13:45) Stat Ekg For Chest Pain (06/10/25 13:34) Notify Md Of Changes From Base (06/10/25 13:34) Net Applications Developer For 24 Hours (06/10/25 13:34) Emergency Dysrhythmia Protocol (06/10/25 13:34) Rhythm Strips Once Every Shift (06/10/25 13:34) Oxygen By Nasal Cannula (06/10/25 13:34) Polyethylene Glycol 17g Powder (Miralax (06/11/25 10:00) Polyethylene Glycol 17g Powder (Miralax (06/10/25 14:30) Vital Signs Date Time Temp Pulse Resp B/P (MAP) Pulse Ox O2 Delivery O2 Flow Rate FiO2 06/10/25 12:45 70 20 126/70 (88) 100 06/10/25 12:30 69 20 106/63 (77) 100 06/10/25 12:15 88 21 110/62 (78) 100 06/10/25 12:00 77 20 98/61 (73) 87 06/10/25 11:45 86 20 94/57 (69) 93 06/10/25 11:30 75 19 87/52 (64) 100 06/10/25 11:15 79 20 82/48 (59) 100 06/10/25 11:00 97.8 83 20 82/51 (61) 99 97.8 06/10/25 10:45 94 22 98 06/10/25 10:30 92 98 06/10/25 10:15 103 92 06/10/25 10:01 97.9 111 18 128/83 (98) 99 97.9 06/10/25 10:00 139 96 06/10/25 09:55 98 19 94 Non-Rebreather 15 N/A Laboratory Tests Test 06/10/25 10:30 06/10/25 12:46 Lactic Acid Level 8.6 mmol/L (0.4-2.0) *H 1.9 mmol/L (0.4-2.0) White Blood Count 7.9 10^3/uL (4.4-10.8) Medications Medications Dose Ordered Sig/Shruthi Route Start Time Stop Time Status Last Admin Dose Admin Cefepime HCl 50 ml @ 50 mls/hr ONCE ONCE IV 06/10/25 10:15 06/10/25 11:14 DC 06/10/25 10:40 50 MLS/HR Lorazepam 1 mg ONCE ONCE IV 06/10/25 09:45 06/10/25 09:46 DC 06/10/25 09:52 1 MG Lorazepam 2 mg ONCE ONCE IM 06/10/25 10:15 06/10/25 10:16 DC 06/10/25 10:09 2 MG Sodium Chloride 1,000 ml @ 150 mls/hr Q6H40M ONCE IV 06/10/25 10:00 06/10/25 16:39 06/10/25 10:20 150 MLS/HR Sodium Chloride 1,000 ml @ 1,000 mls/hr Q1H ONCE IV 06/10/25 10:00 06/10/25 10:59 DC 06/10/25 10:20 1,000 MLS/HR Sodium Chloride 1,000 ml @ 1,000 mls/hr Q1H ONCE IV 06/10/25 10:00 06/10/25 10:59 DC 06/10/25 10:20 1,000 MLS/HR Vancomycin HCl 200 ml @ 200 mls/hr ONCE ONCE IV 06/10/25 10:00 06/10/25 10:59 DC 06/10/25 11:00 200 MLS/HR Assessment/Plan Assessment/Plan 54 yr old female Acute seizure and altered mental status in setting of electrolyte abnormality and suspected pneumonia. ASSESSMENT & PLAN acute Altered Mental Status Likely postictal vs multifactorial (infection, metabolic) Acute breakthrough Seizure ct scan brain negative Witnessed tonic-clonic seizure in ED Postictal on arrival, received Ativan Neurology consult for evaluation Initiate levetiracetam loading and maintenance Monitor for recurrence ordered ativan prn seizure precautions Monitor neuro status q2h Continue supportive care acute Pneumonia, suspected LLL likely from aspiration CXR with LLL infiltrate Start IV vanco and zosyn Monitor vitals, respiratory status, and WBC monitor for resp distress if sats >92% acute Hypokalemia Potassium 2.9 Replete IV potassium per protocol Monitor BMP in am ordered mag and phos fu results acute Hyperglycemia without dka Glucose 248 Sliding scale insulin Monitor glucose q6h acute lactic acidosis ordered vanco and zosyn ordered blood cultures fu results ordered urine culture fu results repeat lactic Psychosocial Stress / Bereavement Recent family deaths and psychosocial distress Grief support services referral Consider psych consult if mood worsens after stabilization chronic problems Type 2 Diabetes Mellitus History of seizures History of FEN / PPx Fluids: IV NS with 20 meq Electrolytes: Potassium replacement, monitor BMP Nutrition: NPO until mental status improves, then diabetic diet DVT Prophylaxis: SCDs until ambulatory GI Prophylaxis: Protonix daily Disposition Admit to medicine for close neurologic monitoring and management of pneumonia, seizure, and hypokalemia. Plan discussed with: Daughter, Other (ed nurse) My Orders Orders - MIRZA KITCHEN DNP Procedure Category Date Status Time Cefepime 2gm/50ml Ns PHA 06/10/25 Logged (Maxipime 2gm/50ml) 14:00 Vancomycin Per PHA 06/10/25 Logged Pharmacy 13:45 * Neurology Consult CONS 06/10/25 Transmitted 13:34 Seizure Assessment [id number] 06/10/25 In Process 13:34 Seizure Precautions ED NURSING 06/10/25 Transmitted Seizure Precautions [facility] 06/10/[address] 13:34 Levetiracetam 1000 PHA 06/10/25 Logged Mg/100ml (Levetiracet 13:45 Levetiracetam 1000 PHA 06/10/25 Logged Mg/100ml (Levetiracet 22:00 Sod Chl 0.9%/ Kcl PHA 06/10/25 Logged 20meq 13:45 Potassium Chl PHA 06/10/25 Logged 20meq/100ml 13:45 Glucose Blood [facility] 06/10/25 Logged (Accu-Chek Comfort 18:00 Insulin R (Human) [facility] 06/10/25 Logged (Insulin R) 18:00 Dextrose 50% Syringe [facility] 06/10/25 Logged 13:45 Drug Screen LAB 06/10/25 Logged 13:34 Thyroid Stimulating LAB 06/10/25 In Process Hormone 13:34 Urinalysis LAB 06/10/25 Logged 13:34 Admit ADMIT 06/10/25 Transmitted 13:34 Allergies [facility] 06/10/25 In Process 13:34 Ondansetron Hcl [facility] 06/10/25 Logged (Zofran) 13:45 Docusate Sodium [facility] 06/10/25 Logged Capsule (Colace 13:45 Complete Blood Count LAB 06/11/25 Verified 04:00 Comprehensive LAB 06/11/25 Verified Metabolic Panel 04:00 Npo (Nothing By DIET 06/10/25 Transmitted Mouth) Diet Dinner Condition: Stable [facility] 06/10/25 In Process 13:34 Sequential [facility] 06/10/25 In Process Compression Device Nitroglycerin [facility] 06/10/25 Logged Sublingual (Ntrostat 13:45 Stat Ekg For Chest [facility] 06/10/25 In Process Pain 13:34 Notify Md Of Changes [facility] 06/10/25 In Process From Base 13:34 Net Applications Developer For [facility] 06/10/25 In Process 24 Hours 13:34 Emergency Dysrhythmia [facility] 06/10/25 In Process Protocol 13:34 Rhythm Strips Once [facility] 06/10/25 In Process Every Shift 13:34 Oxygen By Nasal RT 06/10/25 Transmitted Cannula 13:34 Polyethylene Glycol [facility] 06/11/25 Logged 17g Powder (Miralax 10:00 Polyethylene Glycol PHA 06/10/25 Logged 17g Powder (Miralax 14:30 Date of Service: Jun 10, 2025 Billing Provider: MIRZA KITCHEN DNP Common Visit Codes: [id number] INP/OBS CARE (HIGH) MIRZA KITCHEN DNP Jun 10, 2025 14:34
[2025-06-10 15:21] LABS: Urine Protein, UAD Negative (Negative)
[2025-06-10 15:30] LABS: Amphetamine Screen, Urine Neg (NEGATIVE); Barbiturate Scree,Urine Neg (NEGATIVE); Benzodiazephine Screen, Urine Neg (NEGATIVE); Cannabinoid Screen, Urine Pos (NEGATIVE); Cocaine Screen, Urine Neg (NEGATIVE); Opiate Scree,Urine Pos (NEGATIVE); Phencyclidine Screen, Urine Neg (NEGATIVE)
[2025-06-10] MEDS: POTASSIUM CHL 20MEQ/100ML 100 ML IV SCH (15:44)
[2025-06-10] MEDS: levETIRAcetam 1000 mg/100ml 100 ML IV ONE (15:57)
[2025-06-10] MEDS: InsuLIN REG 1unit/0.01ml Soln (100units/ml) SC SCH (18:00)
[2025-06-10] MEDS: ACCU-CHEK COMFORT CURVE STRIP VI SCH (18:07)
[2025-06-10] MEDS: hydrALAZINE HCL 20 MG/ML VL IV PRN (19:26)
[2025-06-10] MEDS: SOD CHL 0.9%/ KCL 20MEQ 1,000 ML IV SCH (19:42)
[2025-06-10] MEDS: LABETALOL HCL 20 MG/4 ML VL IV ONE (20:45)
[2025-06-10] MEDS: levETIRAcetam 1000 mg/100ml 100 ML IV SCH (22:00)
[2025-06-10] MEDS ORDERED: VANCOMYCIN 750mg/150ml 150 ML IV SCH (23:00)
[2025-06-10] MEDS: HYDROcodone-ACET 10/325MG TAB PO PRN (23:01)
[2025-06-10] MEDS: ONDANSETRON HCL 4 MG/2 ML VIAL IV PRN (23:09)
[2025-06-10] MEDS: KETOROLAC TROMETH 30 MG/ML 1ML VIAL IV ONE (23:15)
[2025-06-10 23:22] VITALS: BP 113/75; PULSE 89; RESP 17; TEMP 99; O2SAT 96
[2025-06-10 23:36] VITALS: BP 113/75; PULSE 89; RESP 17; TEMP 99; O2SAT 96
[2025-06-10] MEDS: CEFEPIME 2GM/50ML NS 50 ML IV SCH (23:49)
[2025-06-11 01:00] VITALS: BP 109/68; PULSE 81; RESP 17; TEMP 98.6; O2SAT 96
[2025-06-11 05:00] VITALS: BP_SYST 111; BP_SYST 59; BP_DIAS 61; BP_DIAS 67; PULSE 64; PULSE 78; RESP 16; RESP 17; TEMP 98.2; O2SAT 95
[2025-06-11] MEDS: VANCOMYCIN 750mg/150ml 150 ML IV SCH (05:28)
[2025-06-11] MEDS ORDERED: POLYETHYLENE GLYCOL 17 GM PWDR PO SCH (10:00)
== END 2025-06-11 06:18 | disposition left against medical advice (07) | DRG 100 ==
LOC: ER 09:27 → OVERFLOW 13:34 → TELE-WESTW 23:20
PROVIDERS: ADMIT Nurse Practitioner Family; ATTEND Nurse Practitioner Family
DX: G40.409 Other generalized epilepsy and epileptic syndromes, not intractable, without status epilepticus (principal); J69.0 Pneumonitis due to inhalation of food and vomit; E87.21 Acute metabolic acidosis; E87.6 Hypokalemia; K59.00 Constipation, unspecified; Z53.29 Procedure and treatment not carried out because of patient's decision for other reasons; E11.65 Type 2 diabetes mellitus with hyperglycemia; I10 Essential (primary) hypertension; Z79.899 Other long term (current) drug therapy; Z98.891 History of uterine scar from previous surgery
CPT/HCPCS: 36415; 70450; 71045; 80053; 80307; 80320; 81001; 82962; 83605; 83735; 84100; 84443; 85025; 85610; 85730; 87040; 96372; 96374; 99291; 99292; G0378; J0692; J2405; J3480